=== PATIENT | female | born 1950 | race Caucasian/White ===

== ENCOUNTER 2024-11-18 18:06 | Emergency (ER) | payer MEDICARE, SELFPAY ==
--- NOTE | ~2024-11-18 | XR_ITS ---
CHEST RADIOGRAPH, PA AND LATERAL CLINICAL HISTORY: Chest Pain . COMPARISON: None available TECHNIQUE: PA and lateral views of the chest. FINDINGS Prominent hiatal hernia is identified. The remainder of the cardiomediastinal silhouette is otherwise unremarkable. The lungs are clear. IMPRESSION: Prominent hiatal hernia, without focal infiltrate or effusion. Reviewed, dictated and finalized at location A. NICAL OPERATIONS VICE PRESIDENT
--- NOTE | 2024-11-18 18:09 | ECG_ITS ---
Test Date: 2024-11-18 18:15:17 Measurements Intervals [place] Rate: 75 P: 43 PA: 171 QRS: 0 QRSD: 95 T: 59 QT: 378 QTc: 425 Interpretive Statements SINUS RHYTHM DELAYED PRECORDIAL R/S TRANSITION LOW QRS VOLTAGE IN PRECORDIAL LEADS BASELINE ARTIFACT- I, II, III, AVR, AVL, AVF, V1-V2 BORDERLINE ECG No previous ECG available for comparison Electronically Signed On 11-18-2024 19:07:21 HULL OUTFIT SUPERVISOR by Andi Rapp D.O.
--- OUTSIDE RECORDS SUMMARY | 2024-11-18 18:09 | XMS_ITS | Data Portability ---
Author Organization [facility], Main Office Address [address] [place] [address] Assessment Encounter Date Assessment Date Assessment LastModified by Organization Details LastModified Time 09/14/2024 09/14/2024 Patient is a 73 yo female presenting via TM for sinus pressure. I performed this visit using real time two way telehealth tools, including Valchemy[employer]ity video visits between my location and the patient's home. Prior to initiating the services, I obtained the patient's informed verbal consent to perform this visit using the telehealth tools and answered all the patient's questions. [email or web address] Not available 09/14/2024 19:06:35 Plan of Treatment Reminders Order Date Submit Date Provider Last Modified By Organization Details Last Modified Time Details Appointments None recorded. Lab None recorded. Referral None recorded. Procedures None recorded. Surgeries None recorded. Imaging None recorded. Medication Orders amoxicillin 875 mg-potassiu m clavulanate 125 mg tablet 2023 024 [facility]/Pharmacy #[id number], [address], [place], [address], 19:05:05 fluticasone propionate 50 mcg/actuati on nasal spray,suspe nsion 2023 024 [facility]/Pharmacy #[id number], [address] , [place], [address], 19:05:05 Patient TargetsNo targets recorded. Patient InstructionsNo instructions recorded. Reason for Referral None Reported. Medical Equipment None Reported. Medications Name Sig Start Date Stop Date Status Note LastModified by Organization Details LastModified Time amoxicillin 500 mg capsule TAKE 1 CAPSULE BY MOUTH 3 TIMES A DAY FOR 10 DAYS active Not Available Not Available Not Available carvedilol 12.5 mg tablet TAKE 1 TABLET BY MOUTH TWICE A DAY WITH FOOD active Not Available Not Available No t Available atorvastatin 10 mg tablet TAKE 1 TABLET BY MOUTH EVERY DAY active Not Available Not Available No t Available alendronate 70 mg tablet PLEASE SEE ATTACHED FOR DETAILED DIRECTIONS active Not Available Not Available N ot Available amlodipine 5 mg tablet TAKE 1 TABLET BY MOUTH EVERY DAY active Not Available Not Available No t Available zolpidem 10 mg tablet TAKE 1/2 TABLET BY MOUTH NIGHTLY NEEDED FOR SLEEP. active Not Available Not Available No t Available fluticasone propionate 50 mcg/actuatio n nasal spray,suspen matthew [place] 1 spray every day by intranasal route as directed for 30 days. active Not Available Not Available No t Available amoxicillin 875 mg-potassium clavulanate 125 mg tablet Take 1 tablet every 12 hours by oral route as directed for 10 days. active Not Available Not Available No t Available olmesartan 40 mg tablet TAKE 1 TABLET BY MOUTH EVERY DAY active Not Available Not Available No t Available cyclosporine 0.05 % eye drops in a dropperette INSTILL 1 DROP INTO BOTH EYES TWICE A DAY active Not Available Not Available Not Available Vitals None Recorded Social History None recorded. Functional Status None recorded. Mental Status None recorded. Family History Nothing Reported. Medical History No medical history recorded. Gynecological HistoryNo gynecological history recorded. Obstetrics History GPAL:G 0 P 0 0 0 0 Past Encounters Encounter ID Performer Location Encounter Start Date Encounter Closed Date Diagnosis/Indication Diagnosis SNOMED-CT Code Diagnosis ICD10 Code Diagnosis Note [id number] [facility] Main Office [address] [place] [address] 09/14/2024 19:01:36 09/14/2024 19:06:55 Acute sinusitis 81336211 J01.90 - 20+ days of nasal congestion and thick nasal discharge with cough and sneezing- PE limited, patient well appearing- Given duration of symptoms will treat for bacterial sinusitis- Start Augmentin BID x10 days- Start flonase- Recommende d sudafed PRN for head congestion - Increase PO fluid intake- ER precaution s discussed with the patient- Return to clinic as needed or in 5 days if no improvemen t of symptoms Health Concerns Section Related Observation LastModified by Organization [facility] LastModified Time None Recorded Concern Status LastModified by Organization Details LastModified Time None Recorded Advance Directives Directive None Recorded Payers Encounter Date Sequence Insurance Name Policy Number Policy Chaudhry Covered Member ID Chaudhry Member ID Guarantor Name 09/14/2024 1 [employer] (MEDICARE REPLACEMENT PPO) [id number] 1 Jennie Weber [id number] Jennie Weber Notes Date Note Type Note Provider Name and Address Organization Details Recorded Time 09/14/2024 text/html Patient is a 73 yo female presenting via TM for sinus pressure. Patient reports approximately 3 weeks ago she started to develop sinus pressure, drainage. Has been having symptoms pretty consistent for the past 3 weeks. Has been taking mucinex to help. Denies any other complaints or symptoms. Allergies: None [facility] [address] [facility], [place], [address], [place] [facility] 09/14/2024 19:06:42 OBGyn Episode No OBEpisode recorded.
--- OUTSIDE RECORDS SUMMARY | 2024-11-18 18:10 | XMS_ITS | Encounter Summary ---
Author Organization [facility] Address [address] [place] [address] Phone Care Team Providers Care Business Intelligence Manager Name Role Phone Prashant Ty MD Primary Care Provider [phone] Huy Stark MD PhD Unavailable + Shakila Meléndez MD Unavailable [phone] Velma Alberts Unavailable Unavailable Angelique Foster MD Unavailable Frannie Marroquin MD Unavailable [phone] Maria R Vee MD Unavailable [phone] Cecilia Chavez MD Unavailable [phone] Encounter Details Date Type Department Care Team (Late st Contact Info) Description 10/24/2017 Orders Only [facility] ProviderJanina MD [address] [place] [address] Social History Tobacco Use Types Packs/Day Years Used Date Smoking Tobacco: Never Comments Unknown Sex and Gender Information Value Date Recorded Sex Assigned at Not on file 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 Gender Identity Not on file Sexual Orientation Not on file documented as of this encounter Plan of Treatment Scheduled Procedures Name Priority Associated Diagnoses Date/Ti me COLONOSCOPY Rectal bleeding documented as of this encounter Procedures Procedure Name Priority Date/Time Associated Diagnosis Comments DISCHARGE LABORATORY CUMULATIVE REPORT 10/24/2017 12:00 AM GLOBAL MARKETING OPERATIONS MANAGER documented in this encounter Results * DISCHARGE LABORATORY CUMULATIVE REPORT (10/24/2017 12:00 AM GLOBAL MARKETING OPERATIONS MANAGER) Narrative 10/24/2017 12:00 AM GLOBAL MARKETING OPERATIONS MANAGER Ordered by an unspecified provider. us Historical Provider LAB BLOOD ORDERABLES Kitty l Result documented in this encounter Visit Diagnoses Not on filedocumented in this encounter Additional Health Concerns Infection Onset Date Last Indicated Resolved Time COVID: Suspected 06/14/2023 06/14/2023 06/14/2023 12:48 PM CDT documented as of this encounter Care Teams Business Intelligence Manager Relationship Specialty Start Date End Date Prashant Ty MD [address] [place], [place] [address]RONI REEDER [address] [place] [id number] PCP - General 05/19/17 Huy Stark MD PhD [address] [place], [place] [address]RONI REEDER [address] [place] [id number] Surgeon Ophthalmology 08/07/18 Shakila Meléndez MD [address] [place], [place] [address]RONI REEDER [address] [place] [id number] Medical Oncologist/Hematologis t Medical Oncology 08/07/18 Velma Alberts [address] [place], [place] [address]RONI REEDER [address] [place] [id number] Referring Physician Dermatology 08/07/18 08/08/19 Angelique Foster MD [address] [place], [place] [address]RONI REEDER [address] [place] [address] Referring Physician Obstetrics and Gynecology 08/08/18 08/12/21 Frannie Marroquin MD [address] [place] [address] Consulting Physician Dermatology 08/09/19 Maria R Vee MD [address] [facility] [phone] [place] [address] Electrical Mechanic Obstetrics and Gynecology 08/13/21 Cecilia Chavez MD [address] [place] [id number] Consulting Physician Bariatrics 08/01/24 documented as of this encounter
--- OUTSIDE RECORDS SUMMARY | 2024-11-18 18:10 | XMS_ITS | Referral Summary ---
Author Organization [facility] Address [address] [place] [address] Care Team Providers Care Baker Operator Automatic Name Role Phone Prashant Ty MD Primary Care Provider [phone] Huy Stark MD PhD Unavailable + Shakila Meléndez MD Unavailable Frannie Marroquin MD Unavailable Maria R Vee MD Unavailable Cecilia Chavez MD Unavailable [phone] Encounters Date Type Department Care Team Description 10/24/2024 9:35 AM SECONDARY HISTORY TEACHER - 10/24/2024 11:59 PM SECONDARY HISTORY TEACHER Hospital Encounter [facility] [address] [place] [address] Encounter for screening mammogram for malignant neoplasm of breast Discharge Disposition: Discharge to home or self care 10/16/2024 Orders Only [facility] [address] [place] [phone] Tracy Unger, RN 10/11/2024 10:30 AM SECONDARY HISTORY TEACHER Office Visit [facility] [address] 6th Floor, [address] [facility] [place] [place] [address] Nano Juárez, OD Macular degeneration of both eyes, unspecified type (Primary Dx); Status post LASIK surgery of both eyes; Both eyes affected by degenerative myopia with other maculopathy; Degenerative myopia of right eye, unspecified whether complication present; Dry eye syndrome of both eyes 10/11/2024 10:20 AM SECONDARY HISTORY TEACHER Imaging Exam [facility] [address] [facility] [address] [place] [address] 09/28/2024 6:00 PM SECONDARY HISTORY TEACHER Office Visit [facility] at [address] [phone] Miguelina Cardona NP Right acute serous otitis media, recurrence not specified (Primary Dx) 09/21/2024 9:00 AM SECONDARY HISTORY TEACHER Infusion [facility] [address] [place] [phone] Iron deficiency anemia, unspecified iron deficiency anemia type (Primary Dx) 09/13/2024 9:00 AM SECONDARY HISTORY TEACHER Infusion [facility] [address] [place] [phone] Iron deficiency anemia, unspecified iron deficiency anemia type (Primary Dx); Fatigue, unspecified type 09/07/2024 9:00 AM SECONDARY HISTORY TEACHER Infusion [facility] [address] [place] [phone] Iron deficiency anemia, unspecified iron deficiency anemia type (Primary Dx) 08/29/2024 11:00 AM SECONDARY HISTORY TEACHER Office Visit [facility] [address] 6 [place] [address] Shakila Meléndez MD History of B-cell lymphoma (Primary Dx) 08/29/2024 10:00 AM SECONDARY HISTORY TEACHER Lab [facility] [address] [facility] [address] [place] [address] History of B-cell lymphoma 08/27/2024 10:00 AM SECONDARY HISTORY TEACHER Office Visit [address] [place] [phone] Prashant Ty MD Medicare annual wellness visit, subsequent (Primary Dx); Primary hypertension; Pure hypercholesterolemia; History of B-cell lymphoma; Osteopenia, unspecified location; Encounter for screening mammogram for malignant neoplasm of breast; Diabetes mellitus screening; Iron deficiency anemia, unspecified iron deficiency anemia type; History of adenomatous polyp of colon; Hay fever; Degeneration of intervertebral disc of lumbar region with discogenic back pain; DDD (degenerative disc disease), thoracic from Last 3 Months Allergies Active Allergy Reactions Criticality Noted Date Comments Prochlorperazine Edisylate Unknown 0 Medications aspirin 81 mg tablet daily. 07/29/20 14 Active famotidine (PEPCID) 40 mg tablet Take 1 tablet (40 mg total) by mouth as needed Active valACYclovir (VALTREX) 1 gram tabletIndications: HSV-1 (herpes simplex virus 1) infection Take 2 tabs (2000 mg) 2 times a days for 1 day. 4 tablet 1 08/02/20 19 Active olmesartan (BENICAR) 40 mg tabletIndications: Primary hypertension Take 1 tablet (40 mg total) by mouth daily 90 tablet 3 10/07/19 24 Active atorvastatin (LIPITOR) 10 mg tabletIndications: Hyperlipidemia, unspecified hyperlipidemia type TAKE 1 TABLET BY MOUTH EVERY DAY 90 tablet 07/20/20 24 Active TESTOSTERONE TRANSDERM Apply 1 Application topically daily 0 07/04/20 24 Active SEMAGLUTIDE, WEIGHT LOSS, SUBQ Inject 0.375 mg under the skin once a week Active carvediloL (COREG) 12.5 mg tabletIndications: Primary hypertension TAKE 1 TABLET BY MOUTH TWICE A DAY WITH FOOD 180 tablet 2 08/30/20 24 Active zolpidem (AMBIEN) 10 mg tabletIndications: Insomnia, unspecified type Take 0.5 tablets (5 mg total) by mouth nightly as needed for sleep 15 tablet 10/17/19 25 Active amLODIPine (NORVASC) 5 mg tabletIndications: Primary hypertension Take 1 tablet (5 mg total) by mouth daily 90 tablet 1 11/06/19 25 Active amLODIPine (NORVASC) 5 mg tabletIndications: Primary hypertension TAKE 1 TABLET BY MOUTH EVERY DAY 90 tablet 07/16/20 24 025 Discontin ued(Reord er) Active Problems Problem Noted Date Diagnosed Date DDD (degenerative disc disease), thoracic 2023 Assessment & Plan (08/27/2024 10:04 AM SECONDARY HISTORY TEACHER): She hs fluctuating pain in both uppper and lower back with known DDD in both locations. Benign exam. Advised OTC analgesics PRN. Refer to PT. Dry eye syndrome of both eyes 04/12/2024 Assessment & Plan (10/11/2024 3:23 PM SECONDARY HISTORY TEACHER): Pfats TID+ Assessment & Plan (04/12/2024 11:17 AM CDT): Discontinue Restasis Rec pfats TID+ OU Lumbar degenerative disc disease 08/23/2023 Assessment & Plan (08/27/2024 10:04 AM SECONDARY HISTORY TEACHER): She hs fluctuating pain in both uppper and lower back with known DDD in both locations. Benign exam. Advised OTC analgesics PRN. Refer to PT Assessment & Plan (08/23/2023 10:08 AM SECONDARY HISTORY TEACHER): Chronic. Intermittent. Benign exam. Check Xrays. Continue OTC analgesics PRN. Advised HEP. Iron deficiency anemia 01/05/2023 Assessment & Plan (08/27/2024 9:57 AM SECONDARY HISTORY TEACHER): Recently recurrent. She begins a series of 3 injectafer infusions next week. Assessment & Plan (08/01/2024 11:39 AM SECONDARY HISTORY TEACHER): Resolved when last checked. Previously, she has not responded to oral iron. She received a series of 3 venofer infusions in 02/2024.If iron deficiency is again confirmed, this is likely causing current symptoms and she will need iron infusions again. Assessment & Plan (02/06/2024 9:49 AM CDT): Recurrent as of outside labs 12/22/23. Recheck labs. Previously, she has not responded to oral iron. If iron deficiency is again confirmed, this is likely causing current symptoms and she will need iron infusions again. Assessment & Plan (08/23/2023 10:14 AM SECONDARY HISTORY TEACHER): Resolved when last checked. Now with mild recurrent anemia. Recheck labs. She is scheduled to see Dr. Meléndez in early 08/2023. 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 Start Restasis BID OU - discussed proper instillation/dosage/side effects. Discussed relationship to JOHNY - pt will discuss with her PCP. Pt to return to clinic if symptoms worsen or do not improve. RTC for ant seg check with Gum or Marquita in 3 months. HSV-1 (herpes simplex virus 1) infection 020 Myopic degeneration, right eye 01/09/2019 Assessment & Plan (05/31/2023 11:09 AM CDT): Central atrophy Assessment & Plan (10/25/2022 2:20 PM SECONDARY HISTORY TEACHER): BCVA 20/90, variable looking through past viists. Stable retinal thinning and superior small schisis cavity. No subjective changes. No choroidal neovascular membrane (CNVM) on OCT. Copying Dr. Stark. Assessment & Plan (10/13/2021 9:26 AM SECONDARY HISTORY TEACHER): Status post PDT in 2003 OD. OCT is stable with subretinal fibrosis > superior and generalized thinning. No active CNVM. Recommend continuing Amsler daily and PreserVision vitamins. Call immediately with any changes to Amsler grid. Assessment & Plan (01/20/2021 10:34 AM CDT): She has extensive retinal thinning and myopic macular degeneration with a history of choroidal neovascularization for which she underwent photodynamic therapy in 2003. In OS, there is also peripapillary atrophy with some macular myopic changes but there is significantly milder than the right Assessment & Plan (01/09/2019 9:50 AM CDT): Status post PDT right eye for subretinal bleed 2003 No active choroidal neovascularization today Continue observation Degenerative myopia of both eyes 01/09/2019 Assessment & Plan (10/11/2024 3:24 PM SECONDARY HISTORY TEACHER): RTC with any acute vision changes Assessment & Plan (04/12/2024 11:16 AM CDT): Cont with current Rx RTC immediately with any acute vision changes, fl/floaters Assessment & Plan (10/13/2023 10:38 AM SECONDARY HISTORY TEACHER): No e/o choroidal neovascular membrane (CNVM). RTC with any acute vision changes. Release updated glasses Rx Assessment & Plan (05/31/2023 11:10 AM CDT): No evidence of CNV Assessment & Plan (05/25/2022 11:52 AM CDT): OD > OS No e/o CNV OU Assessment & Plan (03/05/2022 12:52 PM CDT): Already scheduled for followup with Dr. Stark next month. Assessment & Plan (01/09/2019 9:54 AM CDT): Continue observation Counseled regarding s/s of CNV or RD History of B-cell lymphoma 05/11/2016 Assessment & Plan (08/27/2024 9:55 AM SECONDARY HISTORY TEACHER): RAFA. [facility] exam. [facility] Assessment & Plan (08/23/2023 10:15 AM SECONDARY HISTORY TEACHER): RAFA. Benign exam. She is scheduled to see Dr. Meléndez next month Assessment & Plan (08/16/2022 1:47 PM SECONDARY HISTORY TEACHER): RAFA. Benign exam. Released from Oncology follow up. 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 Prior followed by Dr. Meléndez- CBC at upcoming OV for surveillance Assessment & Plan (08/13/2021 10:02 AM SECONDARY HISTORY TEACHER): RAFA. She remains in remission. Followed by Dr. Meléndez Assessment & Plan (08/12/2020 10:05 AM SECONDARY HISTORY TEACHER): RAFA. She remains in remission. Followed by Dr. Meléndez Assessment & Plan (08/09/2019 10:04 AM SECONDARY HISTORY TEACHER): RAFA. Followed by Dr. Meléndez Assessment & Plan (08/08/2018 10:06 AM SECONDARY HISTORY TEACHER): She remains in remission. Followed by Dr. Meléndez. Osteoarthritis of right shoulder 07/30/2015 Insomnia 02/20/2013 Assessment & Plan (08/23/2023 10:10 AM SECONDARY HISTORY TEACHER): Intermittent. She takes the Ambien 5 mg about twice weekly. No evidence of abuse. Assessment & Plan (08/16/2022 1:33 PM SECONDARY HISTORY TEACHER): Intermittent. She takes the Ambien 5 mg about twice weekly. Assessment & Plan (03/31/2022 9:27 AM CDT): Intermittent. She takes the Ambien 5 mg 2-3x/week Referral to sleep medicine to discuss concerns of uncontrolled HTN, poss JOHNY & insomnia eval Assessment & Plan (12/30/2021 9:41 AM CDT): Intermittent. She takes the Ambien 5 mgg about twice weekly. Assessment & Plan (08/12/2020 10:04 AM SECONDARY HISTORY TEACHER): Intermittent. Improving. She now only takes Ambien when travelling and sleeping in a hotel. Assessment & Plan (08/09/2019 10:04 AM SECONDARY HISTORY TEACHER): Infrequent. She only take Zolpidem when she travels. Assessment & Plan (08/08/2018 10:07 AM SECONDARY HISTORY TEACHER): Infrequent. She rarely uses zolpidem. Osteopenia 11/19/2011 Overview (09/22/2023): Her FRAX adjusted for TBS is 3.6% at hip 08/2023 Assessment & Plan (08/27/2024 10:03 AM SECONDARY HISTORY TEACHER): Followed by [facility]. Assessment & Plan (09/22/2023 2:07 PM SECONDARY HISTORY TEACHER): We will start ALN and plan a 5-year course of Rx Exercise and balance While the focus of the visit has been on bone strength-promoting treatments, we reviewed how balance (proprioception) serves as our s ixth sense. Improving balance plus strength-building exercises are, in my opinion, as important as medications to reduce the risk of fracture. I discussed and provided some straightforward and safe one-foot balance promotion exercises and demonstrated how to do these. Calcium and D After the essential part of today's visit, I again reviewed the patient's total calcium intake. We discussed that optimum calcium intake for bone health is critical. The total amount to achieve via diet (preferred) and supplements is 1000-1200mg daily, not more than this. We discussed different foods and accessories to make that goal realized. I referenced the handout in our brochure. I discussed how to maintain adequate Vitamin D levels best, and that is via supplementation, especially from until . Assessment & Plan (08/23/2023 10:06 AM SECONDARY HISTORY TEACHER): Up to date on DEXA. Counseled on regular exercise. She is scheduled to see [facility] next month. Assessment & Plan (08/13/2021 9:44 AM SECONDARY HISTORY TEACHER): Up to date on DEXA Hay fever 03/18/2011 Assessment & Plan (08/27/2024 10:01 AM SECONDARY HISTORY TEACHER): Her PND is likely due to this. I recommend OTC medication, including antihistamines, flonase, mucinex PRN. Hyperlipidemia 03/18/2011 Assessment & Plan (08/27/2024 9:53 AM SECONDARY HISTORY TEACHER): I discussed ASCVD risk. I spent 15 minutes counseling on CV risk reduction. Our discussion included the followin. Healthy eating habits, including low carbohydrate diet, low starch vegetables. 2. Regular aerobic exercise plan, which can include walking, jogging, treadmill, rowing, swimming biking. I recommend targeting the equivalent of 10K steps daily most days of the week. 3. Optimize BP control. Continue current regimen. Assessment & Plan (08/23/2023 10:01 AM SECONDARY HISTORY TEACHER): I discussed ASCVD risk. I spent 15 minutes counseling on CV risk reduction. Our discussion included the followin. Healthy eating habits, including low carbohydrate diet, low starch vegetables. 2. Regular aerobic exercise plan, which can include walking, jogging, treadmill, rowing, swimming biking. I recommend targeting the equivalent of 10K steps daily most days of the week. 3. Optimize BP control. Continue current regimen. Assessment & Plan (08/16/2022 1:30 PM SECONDARY HISTORY TEACHER): I discussed ASCVD risk. I spent 15 minutes counseling on CV risk reduction. Our discussion included the followin. Healthy eating habits, including low carbohydrate diet, low starch vegetables. 2. Regular aerobic exercise plan, which can include walking, jogging, treadmill, rowing, swimming biking. I recommend targeting the equivalent of 10K steps daily most days of the week. 3. Optimize BP control. Continue current regimen. Assessment & Plan (03/31/2022 9:31 AM CDT): I spent 15 minutes counseling her on CV risk reduction. Our discussion included the followin. Healthy eating habits, including low carbohydrate diet, low starch vegetables. We discussed intermittent fasting and paleo diets. 2. Regular aerobic exercise plan, which can include walking, jogging, treadmill, rowing, swimming biking. I recommend targeting the equivalent of 20K steps daily most days of the week. 3. Optimize BP control. Continue current regimen. Assessment & Plan (08/13/2021 9:45 AM SECONDARY HISTORY TEACHER): I spent 15 minutes counseling her on CV risk reduction. Our discussion included the followin. Healthy eating habits, including low carbohydrate diet, low starch vegetables. We discussed intermittent fasting and paleo diets. 2. Regular aerobic exercise plan, which can include walking, jogging, treadmill, rowing, swimming biking. I recommend targeting the equivalent of 20K steps daily most days of the week. 3. Optimize BP control. Continue current regimen. Assessment & Plan (08/12/2020 10:04 AM SECONDARY HISTORY TEACHER): I spent 15 minutes counseling her on CV risk reduction. Our discussion included the followin. Healthy eating habits, including low carbohydrate diet, low starch vegetables. We discussed intermittent fasting and paleo diets. 2. Regular aerobic exercise plan, which can include walking, jogging, treadmill, rowing, swimming biking. I recommend targeting the equivalent of 20K steps daily most days of the week. 3. Optimize BP control. Continue current regimen. Assessment & Plan (08/09/2019 10:03 AM SECONDARY HISTORY TEACHER): I spent 15 minutes counseling her on CV risk reduction. Our discussion included the followin. Healthy eating habits, including low carbohydrate diet, low starch vegetables. We discussed intermittent fasting and paleo diets. 2. Regular aerobic exercise plan, which can include walking, jogging, treadmill, rowing, swimming biking. I recommend targeting the equivalent of 20K steps daily most days of the week. 3. Optimize BP control. 4. Assessment of ASCVD risk and recommendations how to mitigate this risk.discussion was consistent with the 5 A s approach. Continue current regimen Assessment & Plan (08/08/2018 10:07 AM SECONDARY HISTORY TEACHER): I spent 15 minutes counseling her on CV risk reduction. Our discussion included the followin. Healthy eating habits, including low carbohydrate diet, low starch vegetables. We discussed intermittent fasting and paleo diets. 2. Regular aerobic exercise plan, which can include walking, jogging, treadmill, rowing, swimming biking. I recommend targeting the equivalent of 20K steps daily most days of the week. 3. Optimize BP control. 4. Taking aspirin. 5. Assessment of ASCVD risk and recommendations how to mitigate this risk.discussion was consistent with the 5 A s approach. Continue current regimen. Hypertension 03/18/2011 Assessment & Plan (08/27/2024 9:53 AM SECONDARY HISTORY TEACHER): Hypertension is stable Continue current treatment regimen. Regular aerobic exercise. Continue current medications. Blood pressure will be reassessed at the next regular appointment. Assessment & Plan (02/06/2024 9:48 AM CDT): Hypertension is stable Continue current treatment regimen. Regular aerobic exercise. Continue current medications. Blood pressure will be reassessed at the next regular appointment. Assessment & Plan (08/23/2023 10:10 AM SECONDARY HISTORY TEACHER): Hypertension is controlled on home monitoring, although mildly high here today. Continue current treatment regimen. Regular aerobic exercise. Continue current medications. Ambulatory blood pressure monitoring. Blood pressure will be reassessed at the next regular appointment. Assessment & Plan (11/02/2022 12:22 PM SECONDARY HISTORY TEACHER): Hypertension is improving with treatment Continue current treatment regimen. Regular aerobic exercise. Continue current medications. Blood pressure will be reassessed at the next regular appointment. Assessment & Plan (08/16/2022 1:41 PM SECONDARY HISTORY TEACHER): Hypertension is uncontrolled. Continue current treatment regimen. Dietary sodium restriction. Regular aerobic exercise. Medication changes per orders. Ambulatory blood pressure monitoring. Blood pressure will be reassessed in 3 months. Add amlodipine 5 mg QD Assessment & Plan (07/01/2022 2:38 PM CDT): Uncontrolled. Discussed options. Replace diltiazem with carvedilol. Continue current dose olmesartan. Recheck at next scheduled visit. Assessment & Plan (03/31/2022 9:28 AM CDT): Hypertension is worsening Dietary sodium restriction. Weight loss. Regular aerobic exercise. Medication changes per orders. Ambulatory blood pressure monitoring. Blood pressure will be reassessed in 3 months. Increase dilt 240mg every day; SER Referral to sleep medicine for JOHNY eval Anticipatory CMP at OV in 3 months Assessment & Plan (12/30/2021 9:44 AM CDT): Hypertension is uncontrolled. Regular aerobic exercise. Medication changes per orders. Ambulatory blood pressure monitoring. Blood pressure will be reassessed in 3 months. Increase dose olmesartan Assessment & Plan (11/17/2021 9:45 AM SECONDARY HISTORY TEACHER): HTN improving on home montoring, but still high here. I suspect reactive HTN. We discussed options. Continue current reigmen and home monitoring. Recheck in about 8 weeks; she will bring her cuff to compare. Assessment & Plan (08/13/2021 10:09 AM SECONDARY HISTORY TEACHER): Hypertension is worsening Dietary sodium restriction. Regular aerobic exercise. Medication changes per orders. Blood pressure will be reassessed in 3 months. Add ARB. Assessment & Plan (10/09/2020 11:02 AM SECONDARY HISTORY TEACHER): Hypertension is stable Continue current treatment regimen. Regular aerobic exercise. Continue current medications. Blood pressure will be reassessed at the next regular appointment. Assessment & Plan (08/12/2020 10:04 AM SECONDARY HISTORY TEACHER): Hypertension is stable Continue current treatment regimen. Regular aerobic exercise. Continue current medications. Ambulatory blood pressure monitoring. Blood pressure will be reassessed at the next regular appointment. Assessment & Plan (08/09/2019 10:03 AM SECONDARY HISTORY TEACHER): Hypertension is controlled Continue current treatment regimen. Regular aerobic exercise. Continue current medications. Blood pressure will be reassessed at the next regular appointment. Assessment & Plan (08/08/2018 10:07 AM SECONDARY HISTORY TEACHER): Hypertension is controlled.. Continue current treatment regimen. Regular aerobic exercise. Continue current medications. Ambulatory blood pressure monitoring. Blood pressure will be reassessed at the next regular appointment. Macular degeneration 03/18/2011 Combined forms of age-related cataract of both e yes Overview (01/20/2021): Age-related nuclear cataract, bilateral - (Added by TW Conv) Assessment & Plan (10/11/2024 3:24 PM SECONDARY HISTORY TEACHER): Not yet v/s left eye (OS) - monitor/defer cataract extraction (CE) until s/sx indicate Assessment & Plan (04/12/2024 11:15 AM CDT): Best-corrected visual acuity (BVA) stable, monitor Assessment & Plan (10/13/2023 10:38 AM SECONDARY HISTORY TEACHER): Tr central posterior subcapsular cataract (PSC) both eyes (OU), visually functioning adequately, monitor Assessment & Plan (05/31/2023 11:11 AM CDT): Discussed cataract and continued follow up with Dr Juárez Assessment & Plan (10/13/2021 9:26 AM SECONDARY HISTORY TEACHER): Defer cataract surgery until signs and symptoms indicate Resolved Problems Problem Noted Date Diagnosed Date Resolved Date Vitreous syneresis of both eyes 01/09/2019 08/08/2020 Thoracic radiculitis 12/14/2016 018 Supraventricular tachycardia 03/18/2015 08/08/2018 Immunizations Immunization Administration Dates Next Due Influenza, Quadrivalent, Hig h Dose, Preservative Free, Intrr 07/19/2023,07/10/2021,06/20/2020 Influenza, Quadrivalent, Rec ombinant, Egg Free, Preservative Free, Intramuscular 07/01/2022 Influenza, Quadrivalent, Spl it, Preservative Free, Intramuscular 08/04/2016,07/30/2015 Influenza, Trivalent, High D ose, Split, Preservative Free, Intramuscular 08/17/2024,06/25/2019,07/11/2018,07/27 Influenza, Trivalent, Preser vative Free, Intramuscular 06/23/2014,04/21/2014,07/27/2013,08/26 Influenza, Trivalent, Split, Preservative Free, Intradermal 06/19/2012 Pfizer SARS-CoV-2 Monovalent Vaccination (12+ Yrs) PURPLE 06/25/2021,11/22/2020,10/30/2020 [employer] Sars-Cov-2 Bivalent V accination (12+ YRS) 07/04/2022 Pneumococcal Conjugate PCV 13 08/04/2016 Pneumococcal Polysaccharide PPV23 07/30/2015 RSV Vaccine, Pref, Recombina nt, Subunit, Adjuvanted, PF, IM (Arexvy) 08/17/2024 Sars-cov-2 Covid-19 Mrna, Bi valent, Original/omicron Ba.1 07/19/2023 Tdap 11/22/2022,03/18/2011 ZOSTER LIVE 05/27/2013 ZOSTER Recombinant 08/09/2022,04/20/2022, 020 Social History Tobacco Use Types Packs/Day Years Used Date Smoking Tobacco: Never Cigarettes Smokeless Tobacco: Never Tobacco Cessation:Counseling Given: Not Answered Alcohol Use Standard Drinks/Week Comments Not Currently 0 (1 standard drink = 0.6 oz pur e alcohol) social AUDIT-C Answer Date Recorded Q1: How often do you have a drink containing alcohol? Never 08/27/2024 Q2: How many drinks containi ng alcohol do you have on a typical day when you are drinking? Patient does not drink Q3: How often do you have si x or more drinks on one occasion? Never 08/27/2024 PHQ-2 Answer Date Recorded PHQ-2 Total Score (If total score is 3 or more points, staff should administer the PHQ-9) 0 08/26/2024 Exercise Vital Sign Answer Date Recorde d On average, how many days pe r week do you engage in moderate to strenuous exercise (like a brisk walk)? 4 days 06/30/2020 On average, how many minutes do you engage in exercise at this level? 30 min 06/30/2020 Hunger Vital Sign Answer Date Recorded Within the past 12 months, y ou worried that your food would run out before you got the money to buy more. Never true 09/21/20 24 Within the past 12 months, t he food you bought just didn't last and you didn't have money to get more. Never true 09/21/2024 Personal Safety Answer Date Recorded Have you ever been in or are you currently in a harmful physical or emotional relationship or is someone making you feel afraid or unsafe? Denies 09/21/2024 Comments No Sex and Gender Information Value Date Recorded Sex Assigned at Not on file Legal Sex Female 3:42 AM SECONDARY HISTORY TEACHER Gender Identity Not on file Sexual Orientation Not on file Last Filed Vital Signs Vital Sign Reading Time Taken Comments Blood Pressure 139/83 09/28/2024 6:00 PM SECONDARY HISTORY TEACHER Pulse 81 09/28/2024 6:00 PM SECONDARY HISTORY TEACHER Temperature 36.7 C (98 F) 09/28/2024 6:00 PM SECONDARY HISTORY TEACHER Respiratory Rate 20 09/28/2024 6:00 PM SECONDARY HISTORY TEACHER Oxygen Saturation 98% 09/28/2024 6:00 PM SECONDARY HISTORY TEACHER Inhaled Oxygen Concentration - - Weight 61.2 kg (135 lb) 09/28/2024 6:00 PM SECONDARY HISTORY TEACHER Height 162.6 cm (5' 4 ) 09/28/2024 6:00 PM SECONDARY HISTORY TEACHER Body Mass Index 23.17 09/28/2024 6:00 PM SECONDARY HISTORY TEACHER Plan of Treatment Scheduled Procedures Name Priority Associated Diagnoses Date/Ti me COLONOSCOPY Rectal bleeding Procedures Procedure Name Priority Date/Time Associated Diagnosis Comments SCREENING MAMMOGRAM BILATERAL W YOGESH Schedule Routine, Read Routine (OP Routine) 10/24/2024 9:49 AM SECONDARY HISTORY TEACHER Encounter for screening mammogram for malignant neoplasm of breast OCT, RETINA - OU - BOTH EYES Routine 10/11/2024 10:19 AM SECONDARY HISTORY TEACHER Macular degeneration of both eyes, unspecified type EGFR Routine 08/29/2024 10:13 AM SECONDARY HISTORY TEACHER History of B-cell lymphoma DIFFERENTIAL AUTO Routine 08/29/2024 10: 13 AM SECONDARY HISTORY TEACHER History of B-cell lymphoma CBC WITH AUTO DIFFERENTIAL Routine 08/29/2024 10:13 AM SECONDARY HISTORY TEACHER History of B-cell lymphoma COMPREHENSIVE METABOLIC PANEL Routine 08/29/2024 10:13 AM SECONDARY HISTORY TEACHER History of B-cell lymphoma LACTATE DEHYDROGENASE Routine 08/29/2024 10:13 AM SECONDARY HISTORY TEACHER History of B-cell lymphoma DEXA TBS AXIAL SKELETON BONE DENSITY 1 OR MORE SITES Schedule Routine, Read Routine (OP Routine) 09/22/2023 11:16 AM SECONDARY HISTORY TEACHER Osteoporosis, unspecified osteoporosis type, unspecified pathological fracture presence STOOL DNA COLOGUARD Routine 09/27/2022 9:00 PM SECONDARY HISTORY TEACHER Colon cancer screening COLONOSCOPY 03/11/2022 8:49 AM CDT HEPATITIS C ANTIBODY Routine 03/27/2019 9:57 AM CDT Need for hepatitis C screening test from Last 3 Months or Most Recently Relevant to Health Maintenance Results * Screening Mammogram Bilateral W Yogesh (10/24/2024 9:49 AM SECONDARY HISTORY TEACHER) Anatomical Region Laterality Modality Breast Bilateral Mammography Narrative 10/24/2024 2:58 PM SECONDARY HISTORY TEACHER Mammogram Technique: Bilateral Digital Breast Tomosynthesis, Bilateral C-view 2D Screening mammogram. Views obtained: bilateral craniocaudal and bilateral mediolateral oblique. Computer Aided Detection was performed. Mammogram Findings: The present examination has been compared to prior imaging studies performed at [facility] on 10/20/2020, 10/06/2022 and 10/20/2023. There are scattered areas of fibroglandular density. There is no suspicious abnormality in either breast. Impression: There is no mammographic evidence of malignancy. Annual screening mammography is recommended. OVERALL FINAL ASSESSMENT: BI-RADS CATEGORY 1: Negative. Procedure Note Gina Armstrong MD - 10/24/2024 Mammogram Technique: Bilateral Digital Breast Tomosynthesis, Bilateral C-view 2D Screening mammogram. Views obtained: bilateral craniocaudal and bilateral mediolateral oblique. Computer Aided Detection was performed. Mammogram Findings: The present examination has been compared to prior imaging studies performed at [facility] on 10/20/2020, 10/06/2022 and 10/20/2023. There are scattered areas of fibroglandular density. There is no suspicious abnormality in either breast. Impression: There is no mammographic evidence of malignancy. Annual screening mammography is recommended. OVERALL FINAL ASSESSMENT: BI-RADS CATEGORY 1: Negative. Prashant Ty MD IMG MAMMO PROCEDURES Kitty l Result * OCT, Retina - OU - Both Eyes (10/11/2024 10:19 AM SECONDARY HISTORY TEACHER) Central Macular Thickness OS 259 mircometers CONTINUUM Central Macular Thickness OD 249 micrometers CONTINUUM Anatomical Region Laterality Modality Head Other Narrative 10/11/2024 3:24 PM SECONDARY HISTORY TEACHER Right Eye Quality was good. Progression has been stable. Findings include macular pucker. Macular thickness was 249 micrometers. Left Eye Quality was borderline. Progression has been stable. Findings include macular pucker. Macular thickness was 259 mircometers. 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 73 m2 Comment: Interpretive Data Reference Interval Normal >/= 90 mL/min/1.73m2 Mildly decreased* 60 - 89 mL/min/1.73m2 Mildly to moderately decreased 45 - 59 mL/min/1.73m2 Moderately to severely decreased 30 - 44 mL/min/1.73m2 Severely decreased 15 - 29 mL/min/1.73m2 Kidney Failure < 15 mL/min/1.73m2 *Relative to young adult level Estimated glomerular filtration rate is determined by the 2020 CKD-EPI equation recommended by the National Kidney Foundation (A Unifying Approach to GFR Estimation: Recommendations of the NKF-ASK Task Force on Reassessing the Inclusion of Race in Diagnosing Kidney Disease, JASN 2020). The CKD-EPI equation should not be used for patients with unstable renal function and has not been validated in children and those over 70. Current interpretive data was last reviewed 2021. Blood 08/29/2024 10:1 3 AM SECONDARY HISTORY TEACHER 08/29/2024 10:33 AM SECONDARY HISTORY TEACHER Lynnette Figueroa TWISTER HAND LAB BLOOD ORDERABLES Final Result [facility] [place] [address] * Differential, auto (08/29/2024 10:13 AM SECONDARY HISTORY TEACHER) Neutrophil abs 2.4 1.5 - 6.5 K/cumm Comment:Testing performed by : [facility], [address] [place] [phone] Lymphocyte abs 1.2 0.8 - 3.3 K/cumm CERNER BJ Comment:Testing performed by : [facility], [address] [place], [place] [phone] Monocyte abs 0.6 0.2 - 0.8 K/cumm CERNER BJ Comment:Testing performed by : [facility], [address] [place], [place] [phone] Eosinophil abs 0.3 0.0 - 0.5 K/cumm CERNER BJ Comment:Testing performed by : [facility], [address] [place] [phone] Basophil abs 0.1 0.0 - 0.1 K/cumm CERNER BJ Comment:Testing performed by : [facility], [address] [place] [phone] Neutrophil pct 54.0 % CERNER BJ Comment: Interpretive Data Percent cell count reference ranges are not reported, since discordance with absolute values may lead to misinterpretation of CBC data. Current Interpretive Data was last revised on 2018. Testing performed by: [facility], [address] [place] [phone] Lymphocyte pct 26.4 % CERNER BJ Comment: Interpretive Data Percent cell count reference ranges are not reported, since discordance with absolute values may lead to misinterpretation of CBC data. Current Interpretive Data was last revised on 2018. Testing performed by: [facility], [address] [place] [phone] Monocyte pct 12.5 % MIREILLE RAGLAND Comment: Interpretive Data Percent cell count reference ranges are not reported, since discordance with absolute values may lead to misinterpretation of CBC data. Current Interpretive Data was last revised on 2018. Testing performed by: [facility], [address] [place] [phone] Eosinophil pct 5.8 % MIREILLE RAGLAND Comment: Interpretive Data Percent cell count reference ranges are not reported, since discordance with absolute values may lead to misinterpretation of CBC data. Current Interpretive Data was last revised on 2018. Testing performed by: [facility], [address] [place], [place] [phone] Basophil pct 1.3 % MIREILLE RAGLAND Comment: Interpretive Data Percent cell count reference ranges are not reported, since discordance with absolute values may lead to misinterpretation of CBC data. Current Interpretive Data was last revised on 2018. Testing performed by: [facility], [address] [place] [phone] Blood 08/29/2024 10:1 3 AM SECONDARY HISTORY TEACHER 08/29/2024 10:30 AM SECONDARY HISTORY TEACHER us Lynnette Figueroa TWISTER HAND LAB BLOOD ORDERABLES Final Result [facility] [place] [address] * (ABNORMAL) CBC with auto differential (08/29/2024 10:13 AM SECONDARY HISTORY TEACHER) WBC 4.5 3.8 - 9.9 K/cumm Comment:Testing performed by : [facility], [address] [place] [phone] Hgb 10.5(L) 11.9 - 15.5 g/dL MIREILLE BUTT Comment:Testing performed by : [facility], [address] [place] [phone] Hct 33.7(L) 35.6 - 45.5 % CERCALVIN BJ Comment:Testing performed by : [facility], [address] [place], [place] [phone] Plt 330 150 - 400 K/cumm CERCALVIN BJ Comment:Testing performed by : [facility], [address] [place], [place] [phone] MPV 8.0 6.8 - 10.4 fL CERCALVIN BJ Comment:Testing performed by : [facility], [address] [place], [place] [phone] RBC 3.71(L) 3.90 - 5.20 M/cumm CERCALVIN BJ Comment:Testing performed by : [facility], [address] [place], [place] [phone] MCV 90.9 81.3 - 96.4 fL CERCALVIN BJ Comment:Testing performed by : [facility], [address] [place], [place] [phone] MCH 28.2 27.1 - 33.3 pg CERCALVIN BJ Comment:Testing performed by : [facility], [address] [place], [place] [phone] MCHC 31.1(L) 32.3 - 35.7 g/dL CERCALVIN BJ Comment:Testing performed by : [facility], [address] [place], [place] [phone] RDW CV 14.9 11.1 - 14.9 % MIREILLE BJ Comment:Testing performed by : [facility], [address] [place], [place] [phone] NRBC abs 0.00 0.00 - 0.01 K/cumm CERCALVIN BJ Comment:Testing performed by : [facility], [address] [place], [place] [phone] Blood 08/29/2024 10:1 3 AM SECONDARY HISTORY TEACHER 08/29/2024 10:30 AM SECONDARY HISTORY TEACHER us Lynnette Figueroa TWISTER HAND LAB BLOOD ORDERABLES Final Result [facility] [place] [address] * Lactate dehydrogenase (LD) (08/29/2024 10:13 AM SECONDARY HISTORY TEACHER) [facility] Lactate dehydrogenase (LDH) 171 100 - 250 Units/L Blood 08/29/2024 10:1 3 AM SECONDARY HISTORY TEACHER 08/29/2024 10:33 AM SECONDARY HISTORY TEACHER Lynnette Figueroa TWISTER HAND LAB BLOOD ORDERABLES Final Result [facility] [place] [address] * (ABNORMAL) Comprehensive metabolic panel (08/29/2024 10:13 AM SECONDARY HISTORY TEACHER) [facility] Sodium 143 135 - 145 mmol/L Potassium, pl 4.1 3.3 - 4.9 mmol/L [facility] Chloride 112(H) 97 - 110 mmol/L [facility] CO2 28 22 - 32 mmol/L [facility] Anion gap 3 2 - 15 mmol/L [facility] BUN 13 6 - 25 mg/dL [facility] Creatinine 0.83 0.60 - 1.10 mg/dL [facility] Glucose 90 70 - 199 mg/dL [facility] Comment: Interpretive Data Fasting glucose >/= 126 mg/dl is diagnostic for diabetes. Fasting is defined as no caloric intake for at least 8 hours. Fasting glucose between 100 mg/dl to 125 mg/dl is diagnostic of prediabetes. In a patient with classic symptoms of hyperglycemia or hyperglycemic crisis, a random glucose >/= 200 mg/dl is diagnostic for diabetes. In the absence of unequivocal hyperglycemia, results should be confirmed by repeat testing. The classification and Diagnosis of Diabetes Diabetes Care 202; 46: S19-S40. Current interpretive data was last revised 2022. Calcium 8.8 8.5 - 10.3 mg/dL [facility] Bilirubin, total 0.4 0.1 - 1.2 mg/dL [facility] Protein, pl 7.1 6.5 - 8.5 g/dL [facility] Albumin 3.7 3.5 - 5.0 g/dL [facility] Alk phos 53 40 - 130 Units/L [facility] ALT 7 7 - 45 Units/L [facility] AST 15 10 - 45 Units/L [facility] Blood 08/29/2024 10:1 3 AM SECONDARY HISTORY TEACHER 08/29/2024 10:33 AM SECONDARY HISTORY TEACHER Lynnette Figueroa NP LAB BLOOD ORDERABLES Final Result [facility] [place] [address] * Dexa TBS Axial Skeleton Bone Density 1 or more sites (09/22/2023 11:16 AM SECONDARY HISTORY TEACHER) Anatomical Region Laterality Modality Wrist, Body N/A Radiographic Meghan ging Narrative 09/22/2023 2:01 PM SECONDARY HISTORY TEACHER Patient Name: Jennie Weber Date of : 1950 Date of scan: 09/22/2023 Bone mineral density was performed on a [email or web address] Discovery Densitometer. Based on machine cross-calibration and precision studies the least significant changes of this densitometer is 0.024 g/cm2 at the spine, 0.020 g/cm2 at the total proximal femur, and 0.014g/cm2 at the forearm. HISTORY: This is a 72 y.o. postmenopausal female with a history of low bone mass. She reports that she has never smoked. She has never used smokeless tobacco. previously treated with alendronate (Fosamax) and hormone replacement therapy and current complaint of arm pain, back pain, neck pain, and leg pain. INDICATIONS: Menopause status and history of low bone mass. FINDINGS: BONE MINERAL DENSITY OF THE LUMBAR SPINE Bone Mineral Density (BMD) of the lumbar spine was measured from L1-L4 and the average density was calculated to be 0.805 gm/cm2. This corresponds to a T-score (standard deviations from the mean of young adults) of -2.2. There is no previous study available for comparison. BONE MINERAL DENSITY OF THE PROXIMAL FEMUR Bone Mineral Density (BMD) of the left hip total was found to be 0.672 gm/cm2. This corresponds to a T-score standard deviations from the mean of young adults of -2.2. Femoral neck is 0.618 gm/cm2 with a T-score (standard deviations from the mean of young adults) of -2.1. There is no previous study available for comparison. SUMMARY: Bone mineral density shows evidence of low bone mass at the lumbar spine and proximal femur and moderately increased fracture risk (Osteopenia). The lumbar spine Trabecular Bone Score is 1.151 which suggests degraded bone microarchitecture compared to the general population. Final decisions regarding diagnostic or therapeutic recommendations should include BMD, TBS, additional clinical risk factors as well the clinical context of the patient. Please see attached TBS results for further details. ADDITIONAL COMMENTS: Postmenopausal Women and Men Over 50: Diagnostic criteria: Osteoporosis: BMD at or below -2.5 T-score; Osteopenia (low bone mass): BMD between -1.0 and -2.5 T-score. If the patient has a history of a fragility fracture, a fracture that occurred with trauma equivalent to a fall from a standing position or less, then the diagnosis is osteoporosis regardless of bone density. The history and data sections of the bone mineral density scan were prepared by Satnam Foster who is accredited by the International Society of Clinical Densitometry. The overall patient assessment and scan interpretation were performed by Charlie Napoles MD who is certified by the International Society of Clinical Densitometry. [id number] Charlie Napoles MD [facility] DXA PROCEDURES Final Resul t * Stool DNA - Cologuard (09/27/2022 9:00 PM SECONDARY HISTORY TEACHER) [facility] Stool DNA - Cologuard Negative Negative [employer] (CLIA #:[id number]) Comment: NEGATIVE TEST RESULT. A negative Cologuard result indicates a low likelihood that a colorectal cancer (CRC) or advanced adenoma (adenomatous polyps with more advanced pre-malignant features) is present. The chance that a person with a negative Cologuard test has a colorectal cancer is less than 1 in 1500 (negative predictive value >99.9%) or has an advanced adenoma is less than 5.3% (negative predictive value 94.7%). These data are based on a prospective cross-sectional study of 10,000 individuals at average risk for colorectal cancer who were screened with both Cologuard and colonoscopy. (Gloria Quiles al, N Engl J Med 2014;370(14):9751-3968) The normal value (reference range) for this assay is negative. COLOGUARD RE-SCREENING RECOMMENDATION: Periodic colorectal cancer screening is an important part of preventive healthcare for asymptomatic individuals at average risk for colorectal cancer. Following a negative Cologuard result, the [place] Cancer Society and U.S. Multi-Society Task Force screening guidelines recommend a Cologuard re-screening interval of 3 years. References: [place] [employer] Guideline for Colorectal Cancer Screening: https://www.cancer.org/cancer/uhold-pusalm-gfqynz/djnzvwjvs-qultdmjpz-yaszzdu/ac s-rec ommendations.html.; Julian DK, Steffanie MEMBRENO, Derrick IrwinK, Colorectal Cancer Screening: Recommendations for Physicians and Patients from the U.S. Multi-Society Task Force on Colorectal Cancer Screening , Am J Gastroenterology 2017; 112:3767-1307. TEST DESCRIPTION: Composite algorithmic analysis of stool DNA-biomarkers with hemoglobin immunoassay. Quantitative values of individual biomarkers are not reportable and are not associated with individual biomarker result reference ranges. Cologuard is intended for colorectal cancer screening of adults of either sex, 45 years or older, who are at average-risk for colorectal cancer (CRC). Cologuard has been approved for use by the U.S. FDA. The performance of Cologuard was established in a cross sectional study of average-risk adults aged 50-84. Cologuard performance in patients ages 45 to 49 years was estimated by sub-group analysis of near-age groups. Colonoscopies performed for a positive result may find as the most clinically significant lesion: colorectal cancer [4.0%], advanced adenoma (including sessile serrated polyps greater than or equal to 1cm diameter) [20%] or non- advanced adenoma [31%]; or no colorectal neoplasia [45%]. These estimates are derived from a prospective cross-sectional screening study of 10,000 individuals at average risk for colorectal cancer who were screened with both Cologuard and colonoscopy. (Gloria Liu, N Engl J Med 2014;370(14):6058-7142.) Cologuard may produce a false negative or false positive result (no colorectal cancer or precancerous polyp present at colonoscopy follow up). A negative Cologuard test result does not guarantee the absence of CRC or advanced adenoma (pre-cancer). The current Cologuard screening interval is every 3 years. ([place] [employer] Society and U.S. Multi-Society Task Force). Cologuard performance data in a 10,000 patient pivotal study using colonoscopy as the reference method can be accessed at the following location: www.[employer]/results. Additional description of the Cologuard test process, warnings and precautions can be found at www.cologShareightrd.com. Stool 09/27/2022 9:00 PM SECONDARY HISTORY TEACHER 09/29/2022 10:27 AM SECONDARY HISTORY TEACHER Shakila Meléndez MD LAB BODY FLUIDS AND STOOLS ORDERABLES Final Result [employer] (CLIA #:[id number]) [address] [place] [address] * COLONOSCOPY (03/11/2022 8:49 AM CDT) Anatomical Region Laterality Modality Other Narrative Procedure Note Fredis Trinidad MD - 03/11/2022 8:49 AM CDT [facility] Patient Name: Jennie Weber Procedure Date: 03/11/2022 8:49 AM Date of : 1950 Admit Type: Outpatient Age: 71 Gender: Female Attending MD: Fredis Trniidad M.D. Room: [facility] ENDOSCOPY ROOM 8 Note Status: Finalized Procedure: Colonoscopy Indications: Hematochezia Referring MD: Prashant Ty M.D. Providers: Fredis Trinidad M.D. Medicines: Monitored Anesthesia Care Complications: No immediate complications. Estimated Blood Loss: Estimated blood loss: none. Procedure: Pre-Anesthesia Assessment: - Immediately prior to administration ofmedications, the patient was re-assessed for adequacy to receive sedatives. - The risks and benefits of the procedure and the sedation options and risks were discussed with the patient. All questions were answered and informed consent was obtained. The benefits, risks and alternatives of theprocedure and sedation were discussed and informed consentwas obtained. All questions were answered. Please referto the signed informed consent document in the medical record. The scope was passed under direct vision.The CF HQ [id number] endoscope was introducedthrough the anus and advanced to the cecum, identified by appendiceal orifice and ileocecal valve. The colonoscopy was performed without difficulty. The patient tolerated the procedure well. The qualityof the bowel preparation was good. The quality of the bowel preparation was evaluated using the BBPS([place] Bowel Preparation Scale) with scores of: RightColon = 3, Transverse Colon = 3 and Left Colon = 3 (entire mucosa seen well with no residual staining, small fragments of stool or opaque liquid). The totalBBPS score equals 9. The bowel preparation used was GoLYTELY via split dose instruction. Bowel prep was administered using a split dose. Findings: Multiple small and large-mouthed diverticula were found in the entire colon. Two semi-sessile polyps were found in the transverse colon. Thepolyps were 6 to 8 mm in size. These polyps were removed with a hot snare. Resection and retrieval were complete. Internal hemorrhoids were found. The hemorrhoids were mild. Impression: - Diverticulosis in the entire examined colon. - Two 6 to 8 mm polyps in the transverse colon, removed with a hot snare. Resected and retrieved. - Internal hemorrhoids. Recommendation: - Await pathology results. - Repeat colonoscopy in 5 years for surveillancebased on pathology results. - A polyp or polyps were removed during your colonoscopy today. After the pathology result ofthe polyp(s) is reviewed, the doctor who performedyour colonoscopy will recommend follow-up colonoscopy to you based on current guidelines by gastroenterology societies: - If only small hyperplastic polyps from the rectumor sigmoid were removed, repeat the colonoscopy in 10 years. - If 1 or 2 polyps less than 1 cm in size are adenomas, repeat the colonoscopy in 5 years. - If 3 or more polyps are adenomas, repeat the colonoscopy in 3 years. - If there are 10 or more adenomas, repeat the colonoscopy in 1 year. - If any polyp is 10 mm or greater in size, has villous histology or high grade dysplasia,repeat the colonoscopy in 3 years. - If a polyp greater than 2 cm was removed with a piecemeal technique, repeat the colonoscopy in 6 months to be certain that there is no residualpolyp. - Sessile serrated polyps are treated like adenomas for surveillance purposes. Electronically signed by Fredis Trinidad MD Fredis Trinidad M.D. 03/11/2022 9:27:53 AM . Number of Addenda: 0 Note Initiated On: 03/11/2022 8:49 AM Recognized by the [employer] for promoting quality in endoscopy us Fredis Trinidad MD ENDOSCOPY PROCEDURES Final Result * Hepatitis C antibody (03/27/2019 9:57 AM CDT) Hep C Ab NON-REACT BAL NON-REACT BAL [facility] [place] SIGNAL TO CUT-OFF 0.01 <1.00 [facility] [place] Comment: HCV antibody was non-reactive. There is no laboratory evidence of HCV infection. In most cases, no further action is required. However, if recent HCV exposure is suspected, a test for HCV RNA (test code 97242) is suggested. For additional information please refer to http://education.[employer]/faq/MWM49c3 (This link is being provided for informational/ educational purposes only.) Blood specimen (specimen) 03/27/2019 9:57 AM CDT 03/27/2019 9:57 AM CDT Narrative [facility] - 03/28/2019 10:28 AM CDT FASTING:YES FASTING: YES Resulting Agency Comment Performing Organization Information: Site ID: [id number] Name: [facility] Address: [address] [id number] Director: José Luis Lopez D.O., MPH us Prashant Ty MD LAB MICROBIOLOGY - GENERA L ORDERABLES Final Result [facility] Emanuel from Last 3 Months or Most Recently Relevant to Health Maintenance Insurance [employer] MEDICARE FORMERLY [facility] MEDICARE FORMERLY [facility] MEDICARE FORMERLY [facility] MEDICARE Advance Directives For more information, please contact: [phone] * Full Code (Latest Code Status on File) Date Activated Date Inactivated Comments 03/11/2022 8:27 AM 03/11/2022 2:04 PM Care Teams Baker Operator Automatic Relationship Specialty Start Date End Date Prashant Ty MD [address] [place] [address] DR [address]onda [address] [place] [address] PCP - General 05/19/17 Huy Stark MD PhD [address] [place], [place] [address]RON[address] [place] [address] Surgeon Ophthalmology 08/07/18 Shakila Meléndez MD [address] [place], [place] [address] [place] [address] Medical Oncologist/Hematologis t Medical Oncology 08/07/18 Frannie Marroquin MD [address] [facility] [place] [facility] [[email or web address] [address] [place] [address] Consulting Physician Dermatology 08/09/19 Maria R Vee MD [address] [facility] [id number] [place] [address] Director Of Individual Giving Obstetrics and Gynecology 08/13/21 Cecilia Chavez MD [address] [place] [id number] Consulting Physician Bariatrics 08/01/24
--- OUTSIDE RECORDS SUMMARY | 2024-11-18 18:10 | XMS_ITS | Clinical Summary ---
Author Organization [facility] Address [address] [place] [address] Care Team Providers Care Miller Head Assistant Wet Process Name Role Phone Prashant Ty MD Primary Care Provider [phone] Huy Stark MD PhD Unavailable + Shakila Meléndez MD Unavailable Frannie Marroquin MD Unavailable Maria R Vee MD Unavailable [phone] Cecilia Chavez MD Unavailable [phone] Allergies Active Allergy Reactions Criticality Noted Date [...] 2023 Assessment & Plan (08/27/2024 10:04 AM TRANSPORT ENGINEER): She hs fluctuating pain in both uppper and lower back with known DDD in both locations. Benign exam. Advised OTC analgesics PRN. Refer to PT. Dry eye syndrome of both eyes 04/12/2024 Assessment & Plan (10/11/2024 3:23 PM TRANSPORT ENGINEER): Pfats TID+ Assessment & Plan (04/12/2024 11:17 AM CDT): Discontinue Restasis Rec pfats TID+ OU Lumbar degenerative disc disease 08/23/2023 Assessment & Plan (08/27/2024 10:04 AM TRANSPORT ENGINEER): She hs fluctuating pain in both uppper and lower back with known DDD in both locations. Benign exam. Advised OTC analgesics PRN. Refer to PT Assessment & Plan (08/23/2023 10:08 AM TRANSPORT ENGINEER): Chronic. Intermittent. Benign exam. Check Xrays. Continue OTC analgesics PRN. Advised HEP. Iron deficiency anemia 01/05/2023 Assessment & Plan (08/27/2024 9:57 AM TRANSPORT ENGINEER): Recently recurrent. She begins a series of 3 injectafer infusions next week. Assessment & Plan (08/01/2024 11:39 AM TRANSPORT ENGINEER): Resolved when last checked. Previously, she has [...] again. Assessment & Plan (08/23/2023 10:14 AM TRANSPORT ENGINEER): Resolved when last checked. Now with mild recurrent anemia. Recheck labs. She is scheduled to see Dr. Meléndez in early 08/2023. Status post LASIK surgery of both eyes 3 History of adenomatous polyp of colon 08/16/2022 Assessment & Plan (08/27/2024 9:54 AM TRANSPORT ENGINEER): Up to date on colonoscopy Assessment & Plan (08/23/2023 10:00 AM TRANSPORT ENGINEER): Up to date on colonoscopy Assessment & Plan (08/16/2022 1:29 PM TRANSPORT ENGINEER): Up to date on colonoscopy Floppy eyelid [...] atrophy Assessment & Plan (10/25/2022 2:20 PM TRANSPORT ENGINEER): BCVA 20/90, variable looking through past viists. Stable retinal thinning and superior small schisis cavity. No subjective changes. No choroidal neovascular membrane (CNVM) on OCT. Copying Dr. Stark. Assessment & Plan (10/13/2021 9:26 AM TRANSPORT ENGINEER): Status post PDT in 2003 OD. OCT [...] 01/09/2019 Assessment & Plan (10/11/2024 3:24 PM TRANSPORT ENGINEER): RTC with any acute vision changes Assessment & Plan (04/12/2024 11:16 AM CDT): Cont with current Rx RTC immediately with any acute vision changes, fl/floaters Assessment & Plan (10/13/2023 10:38 AM TRANSPORT ENGINEER): No e/o choroidal neovascular membrane (CNVM). RTC [...] 05/11/2016 Assessment & Plan (08/27/2024 9:55 AM TRANSPORT ENGINEER): RAFA. Benign exam. Followed by [facility]. Assessment & Plan (08/23/2023 10:15 AM TRANSPORT ENGINEER): RAFA. Benign exam. She is scheduled to see Dr. Meléndez next month Assessment & Plan (08/16/2022 1:47 PM TRANSPORT ENGINEER): RAFA. Benign exam. Released from Oncology follow up. 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 Prior followed by Dr. 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 Followed by Dr. Meléndez Assessment & Plan (08/12/2020 10:05 AM TRANSPORT ENGINEER): RAFA. She remains in remission. Followed by Dr. Meléndez Assessment & Plan (08/09/2019 10:04 AM TRANSPORT ENGINEER): RAFA. Followed by Dr. Meléndez Assessment & Plan (08/08/2018 10:06 AM TRANSPORT ENGINEER): She remains in remission. Followed by Dr. Meléndez. Osteoarthritis of right shoulder 07/30/2015 Insomnia 02/20/2013 Assessment & Plan (08/23/2023 10:10 AM TRANSPORT ENGINEER): Intermittent. She takes the Ambien 5 mg about twice weekly. No evidence of abuse. Assessment & Plan (08/16/2022 1:33 PM TRANSPORT ENGINEER): Intermittent. She takes the Ambien 5 mg about twice weekly. Assessment & Plan (03/31/2022 9:27 AM CDT): Intermittent. She takes the Ambien 5 mg 2-3x/week Referral to sleep medicine to discuss concerns of uncontrolled HTN, poss JOHNY & insomnia eval Assessment & Plan (12/30/2021 9:41 AM CDT): Intermittent. She takes the Ambien 5 mgg about twice weekly. Assessment & Plan (08/12/2020 10:04 AM TRANSPORT ENGINEER): Intermittent. Improving. She now only takes Ambien when travelling and sleeping in a hotel. Assessment & Plan (08/09/2019 10:04 AM TRANSPORT ENGINEER): Infrequent. She only take Zolpidem when she travels. Assessment & Plan (08/08/2018 10:07 AM TRANSPORT ENGINEER): Infrequent. She rarely uses zolpidem. Osteopenia 11/19/2011 Overview (09/22/2023): Her FRAX adjusted for TBS is 3.6% at hip 08/2023 Assessment & Plan (08/27/2024 10:03 AM TRANSPORT ENGINEER): Followed by [facility]. Assessment & Plan (09/22/2023 2:07 PM TRANSPORT ENGINEER): We will start ALN and plan a [...] . Assessment & Plan (08/23/2023 10:06 AM TRANSPORT ENGINEER): Up to date on DEXA. Counseled on regular exercise. She is scheduled to see [facility] next month. Assessment & Plan (08/13/2021 9:44 AM TRANSPORT ENGINEER): Up to date on DEXA Hay fever 03/18/2011 Assessment & Plan (08/27/2024 10:01 AM TRANSPORT ENGINEER): Her PND is likely due to this. I recommend OTC medication, including antihistamines, flonase, mucinex PRN. Hyperlipidemia 03/18/2011 Assessment & Plan (08/27/2024 9:53 AM TRANSPORT ENGINEER): I discussed ASCVD risk. I spent 15 [...] regimen. Assessment & Plan (08/23/2023 10:01 AM TRANSPORT ENGINEER): I discussed ASCVD risk. I spent 15 [...] regimen. Assessment & Plan (08/16/2022 1:30 PM TRANSPORT ENGINEER): I discussed ASCVD risk. I spent 15 [...] regimen. Assessment & Plan (08/13/2021 9:45 AM TRANSPORT ENGINEER): I spent 15 minutes counseling her on [...] regimen. Assessment & Plan (08/12/2020 10:04 AM TRANSPORT ENGINEER): I spent 15 minutes counseling her on [...] regimen. Assessment & Plan (08/09/2019 10:03 AM TRANSPORT ENGINEER): I spent 15 minutes counseling her on [...] regimen Assessment & Plan (08/08/2018 10:07 AM TRANSPORT ENGINEER): I spent 15 minutes counseling her on [...] 03/18/2011 Assessment & Plan (08/27/2024 9:53 AM TRANSPORT ENGINEER): Hypertension is stable Continue current treatment regimen. Regular aerobic exercise. Continue current medications. Blood pressure will be reassessed at the next regular appointment. Assessment & Plan (02/06/2024 9:48 AM CDT): Hypertension is stable Continue current treatment regimen. Regular aerobic exercise. Continue current medications. Blood pressure will be reassessed at the next regular appointment. Assessment & Plan (08/23/2023 10:10 AM TRANSPORT ENGINEER): Hypertension is controlled on home monitoring, although mildly high here today. Continue current treatment regimen. Regular aerobic exercise. Continue current medications. Ambulatory blood pressure monitoring. Blood pressure will be reassessed at the next regular appointment. Assessment & Plan (11/02/2022 12:22 PM TRANSPORT ENGINEER): Hypertension is improving with treatment Continue current treatment regimen. Regular aerobic exercise. Continue current medications. Blood pressure will be reassessed at the next regular appointment. Assessment & Plan (08/16/2022 1:41 PM TRANSPORT ENGINEER): Hypertension is uncontrolled. Continue current treatment regimen. [...] olmesartan Assessment & Plan (11/17/2021 9:45 AM TRANSPORT ENGINEER): HTN improving on home montoring, but still high here. I suspect reactive HTN. We discussed options. Continue current reigmen and home monitoring. Recheck in about 8 weeks; she will bring her cuff to compare. Assessment & Plan (08/13/2021 10:09 AM TRANSPORT ENGINEER): Hypertension is worsening Dietary sodium restriction. Regular aerobic exercise. Medication changes per orders. Blood pressure will be reassessed in 3 months. Add ARB. Assessment & Plan (10/09/2020 11:02 AM TRANSPORT ENGINEER): Hypertension is stable Continue current treatment regimen. Regular aerobic exercise. Continue current medications. Blood pressure will be reassessed at the next regular appointment. Assessment & Plan (08/12/2020 10:04 AM TRANSPORT ENGINEER): Hypertension is stable Continue current treatment regimen. Regular aerobic exercise. Continue current medications. Ambulatory blood pressure monitoring. Blood pressure will be reassessed at the next regular appointment. Assessment & Plan (08/09/2019 10:03 AM TRANSPORT ENGINEER): Hypertension is controlled Continue current treatment regimen. Regular aerobic exercise. Continue current medications. Blood pressure will be reassessed at the next regular appointment. Assessment & Plan (08/08/2018 10:07 AM TRANSPORT ENGINEER): Hypertension is controlled.. Continue current treatment regimen. Regular aerobic exercise. Continue current medications. Ambulatory blood pressure monitoring. Blood pressure will be reassessed at the next regular appointment. Macular degeneration 03/18/2011 Combined forms of age-related cataract of both e yes Overview (01/20/2021): Age-related nuclear cataract, bilateral - (Added by TW Conv) Assessment & Plan (10/11/2024 3:24 PM TRANSPORT ENGINEER): Not yet v/s left eye (OS) - monitor/defer cataract extraction (CE) until s/sx indicate Assessment & Plan (04/12/2024 11:15 AM CDT): Best-corrected visual acuity (BVA) stable, monitor Assessment & Plan (10/13/2023 10:38 AM TRANSPORT ENGINEER): Tr central posterior subcapsular cataract (PSC) both eyes (OU), visually functioning adequately, monitor Assessment & Plan (05/31/2023 11:11 AM CDT): Discussed cataract and continued follow up with Dr Juárez Assessment & Plan (10/13/2021 9:26 AM TRANSPORT ENGINEER): Defer cataract surgery until signs and symptoms indicate Resolved Problems Problem Noted Date Diagnosed Date Resolved Date Vitreous syneresis of both eyes 01/09/2019 08/08/2020 Thoracic radiculitis 12/14/2016 018 Supraventricular tachycardia 03/18/2015 08/08/2018 Encounters Date Type Department Care Team Description 10/24/2024 9:35 AM TRANSPORT ENGINEER - 10/24/2024 11:59 PM TRANSPORT ENGINEER Hospital Encounter [facility] [address] [facility] [address] [place] [address] Encounter for screening mammogram for malignant neoplasm of breast Discharge Disposition: Discharge to home or self care 10/16/2024 Orders Only [facility] [address] [place] [address] Ave [address] [place] [phone] Tracy Unger RN 10/11/2024 10:30 AM TRANSPORT ENGINEER Office Visit [facility] Ophthalmology [address] [facility] [address] [facility] [facility] [place] [place] [address] Nano Juárez, OD Macular degeneration of both eyes, unspecified type (Primary Dx); Status post LASIK surgery of both eyes; Both eyes affected by degenerative myopia with other maculopathy; Degenerative myopia of right eye, unspecified whether complication present; Dry eye syndrome of both eyes 10/11/2024 10:20 AM TRANSPORT ENGINEER Imaging Exam [facility] Ophthalmology [address] [facility] [address] [place] [address] 09/28/2024 6:00 PM TRANSPORT ENGINEER Office Visit [facility] at [address] [address] Miguelina Cardona, [place] Right acute serous otitis media, recurrence not specified (Primary Dx) 09/21/2024 9:00 AM TRANSPORT ENGINEER Infusion [facility] [address] [place] [phone] Iron deficiency anemia, unspecified iron deficiency anemia type (Primary Dx) 09/13/2024 9:00 AM TRANSPORT ENGINEER Infusion [facility] [address] [place] [phone] Iron deficiency anemia, unspecified iron deficiency anemia type (Primary Dx); Fatigue, unspecified type 09/07/2024 9:00 AM TRANSPORT ENGINEER Infusion [facility] [address] [facility] [address] [place] [address] Iron deficiency anemia, unspecified iron deficiency anemia type (Primary Dx) 08/29/2024 11:00 AM TRANSPORT ENGINEER Office Visit [facility] Oncology [address] [facility] [address] 6 [place] [address] Shakila Meléndez MD History of B-cell lymphoma (Primary Dx) 08/29/2024 10:00 AM TRANSPORT ENGINEER Lab [facility] [address] [facility] [address] [place] [address] History of B-cell lymphoma 08/27/2024 10:00 AM TRANSPORT ENGINEER Office Visit [address] [place] [phone] Prashant Ty MD Medicare annual wellness visit, [...] disc disease), thoracic from Last 3 Months Immunizations Immunization Administration Dates Next Due Influenza, [...] SARS-CoV-2 Monovalent Vaccination (12+ Yrs) PURPLE 06/25/2021,11/22/2020,10/30/2020 Pfizer Sars-Cov-2 Bivalent V accination (12+ YRS) 07/04/2022 Pneumococcal Conjugate PCV 13 08/04/2016 Pneumococcal Polysaccharide PPV23 07/30/2015 RSV Vaccine, Pref, Recombina nt, Subunit, Adjuvanted, PF, IM (Arexvy) 08/17/2024 Sars-cov-2 Covid-19 Mrna, Bi valent, Original/omicron Ba.1 07/19/2023 Tdap 11/22/2022,03/18/2011 ZOSTER LIVE 05/27/2013 ZOSTER Recombinant 08/09/2022,04/20/2022, 020 Surgical History Surgery Date Site/Laterality Comments LASIK Corneal LASIK - (Added by TW Conv) SHOULDER SURGERY Shoulder Surgery - (Added by TW Conv) RETINAL LASER PROCEDURE Right PDT Medical History Medical History Date Comments Personal history of diseases of skin or subcutaneous tissue History of lichen planus - ( Added by TW Conv) Superior glenoid labrum lesi on of right shoulder Tear of right glenoid labrum - (Added by TW Conv) 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 - (Added by TW Conv) Personal history of diseases of skin or subcutaneous tissue History of actinic keratosis - (Added by TW Conv) Personal history of other di seases of the nervous system and sense organs History of macular degeneration - (Added by TW Conv) Intermediate stage nonexudat bal age-related macular degeneration of both eyes Intermediate stage dry age-r elated macular degeneration of both eyes - (Added by TW Conv) Degenerative myopia Pathologic m yopia - (Added by TW Conv) Age-related nuclear cataract of both eyes Age-related nuclear cataract , bilateral - (Added by TW Conv) Other vitreous opacities, un specified eye Vitreous syneresis - (Added by TW Conv) Myopic degeneration, right eye 01/09/2019 Macular degeneration 03/18/2011 Vitreous syneresis of both eyes 01/09/2019 Degenerative myopia of both eyes 01/09/2019 Diverticulosis GERD (gastroesophageal reflux disease) Anemia Osteoporosis Hypertension Family History Medical History Relation Name Comments Coronary artery disease Father [place] Heart attack Father [place] Heart failure Father [place] Alcohol abuse Mother Cecilia Hill Stroke Mother Cecilia Hill Relation Name Status Comments Father [place] Maternal Grandfather Maternal Grandmother Mother Cecilia Hill Paternal Grandfather Paternal Grandmother Social History Tobacco Use Types Packs/Day Years [...] on file Legal Sex Female 3:42 AM TRANSPORT ENGINEER Gender Identity Not on file Sexual Orientation Not on file Obstetrics History Para Term AB IAB SAB Ectopic Multiple Livin g Live Births 4 4 4 4 4 Date Outcome GA Total Labor Labor/2nd/3rd Weight Sex Type Anes PTL Shireen A1 A5 Name Clin Term Vag-S pont Living Term Vag-S pont Living Term Vag-S pont Living Term Vag-S pont Living Last Filed Vital Signs Vital Sign Reading Time Taken Comments Blood Pressure 139/83 09/28/2024 6:00 PM TRANSPORT ENGINEER Pulse 81 09/28/2024 6:00 PM TRANSPORT ENGINEER Temperature 36.7 C (98 F) 09/28/2024 6:00 PM TRANSPORT ENGINEER Respiratory Rate 20 09/28/2024 6:00 PM TRANSPORT ENGINEER Oxygen Saturation 98% 09/28/2024 6:00 PM TRANSPORT ENGINEER Inhaled Oxygen Concentration - - Weight 61.2 kg (135 lb) 09/28/2024 6:00 PM TRANSPORT ENGINEER Height 162.6 cm (5' 4 ) 09/28/2024 6:00 PM TRANSPORT ENGINEER Body Mass Index 23.17 09/28/2024 6:00 PM TRANSPORT ENGINEER Plan of Treatment Scheduled Procedures Name Priority Associated Diagnoses Date/Ti me COLONOSCOPY Rectal bleeding Health Maintenance Due Date Last Done Comments Covid-19 Vaccine (2023-10 5 season) 2024 07/19/2023, 07/19/2023, 07/04/2022, Additional history exists Depression Screening 08/27/2025 08/27/2024, 08/23/2023, 08/16/2022, Additional history exists Fall Risk Assessment 08/27/2025 08/27/2024, 08/23/2023, 08/16/2022, Additional history exists Well Visit 65+ 08/27/2025 08/27/2024, 07/28, 08/16/2022, Additional history exists Osteoporosis Screening-Bone Density Scan 09/22/2025 09/22/2023, 08/16/2022, 10/19/2019, Additional history exists Colon Cancer Screening-Colonoscopy 03/11/2027 03/11/2022, 12/01/2015 DTaP/Tdap/Td Vaccine (3 - Td or Tdap) 11/22/2032 11/22/2022, 03/18/2011 Pneumococcal vaccine 65+ Completed 08/04/2016, 12/2014 Hepatitis C Screening Completed 03/27/2019 Colon Cancer Screening-CT Colonography Discontinued 03/11/2022, 12/01/2015 Colon Cancer Screening-Sigmoidoscopy Discontinued 03/11/2022, 12/01/2015 Zoster Vaccine Completed 08/09/2022, 03/27, 08/12/2020, Additional history exists Colon Cancer Screening-DNA Stool Discontinued 09/27/2022, 03/11/2022, 12/01/2015 Colon Cancer Screening-FIT Discontinued 09/27, 03/11/2022, 12/01/2015 Influenza Vaccine Completed 08/17/2024, , 07/01/2022, Additional history exists Breast Cancer Screening-Mammogram Discontinued 10/24/2024, 10/20/2023, 10/06/2022, Additional history exists Hepatitis B Screening Discontinued Procedures Procedure Name Priority Date/Time Associated Diagnosis Comments SCREENING MAMMOGRAM BILATERAL W YOGESH Schedule Routine, Read Routine (OP Routine) 10/24/2024 9:49 AM TRANSPORT ENGINEER Encounter for screening mammogram for malignant neoplasm of breast OCT, RETINA - OU - BOTH EYES Routine 10/11/2024 10:19 AM TRANSPORT ENGINEER Macular degeneration of both eyes, unspecified type EGFR Routine 08/29/2024 10:13 AM TRANSPORT ENGINEER History of B-cell lymphoma DIFFERENTIAL AUTO Routine 08/29/2024 10: 13 AM TRANSPORT ENGINEER History of B-cell lymphoma CBC WITH AUTO DIFFERENTIAL Routine 08/29/2024 10:13 AM TRANSPORT ENGINEER History of B-cell lymphoma COMPREHENSIVE METABOLIC PANEL Routine 08/29/2024 10:13 AM TRANSPORT ENGINEER History of B-cell lymphoma LACTATE DEHYDROGENASE Routine 08/29/2024 10:13 AM TRANSPORT ENGINEER History of B-cell lymphoma DEXA TBS AXIAL SKELETON BONE DENSITY 1 OR MORE SITES Schedule Routine, Read Routine (OP Routine) 09/22/2023 11:16 AM TRANSPORT ENGINEER Osteoporosis, unspecified osteoporosis type, unspecified pathological fracture presence STOOL DNA COLOGUARD Routine 09/27/2022 9:00 PM TRANSPORT ENGINEER Colon cancer screening COLONOSCOPY 03/11/2022 8:49 AM CDT HEPATITIS C ANTIBODY Routine 03/27/2019 9:57 AM CDT Need for hepatitis C screening test from Last 3 Months or Most Recently Relevant to Health Maintenance Results * Screening Mammogram Bilateral W Yogesh (10/24/2024 9:49 AM TRANSPORT ENGINEER) Anatomical Region Laterality Modality Breast Bilateral Mammography Narrative 10/24/2024 2:58 PM TRANSPORT ENGINEER Mammogram Technique: Bilateral Digital Breast Tomosynthesis, Bilateral C-view 2D Screening mammogram. Views obtained: bilateral craniocaudal and bilateral mediolateral oblique. Computer Aided Detection was performed. Mammogram Findings: The present examination has been compared to prior imaging studies performed at [facility] on 10/20/2020, 10/06/2022 and 10/20/2023. There are [...] compared to prior imaging studies performed at [facility] on 10/20/2020, 10/06/2022 and 10/20/2023. There are scattered areas of fibroglandular density. There is no suspicious abnormality in either breast. Impression: There is no mammographic evidence of malignancy. Annual screening mammography is recommended. OVERALL FINAL ASSESSMENT: BI-RADS CATEGORY 1: Negative. us Prashant Ty MD IMG MAMMO PROCEDURES Kitty l Result * OCT, Retina - OU - Both Eyes (10/11/2024 10:19 AM TRANSPORT ENGINEER) Central Macular Thickness OS 259 mircometers CONTINUUM Central Macular Thickness OD 249 micrometers CONTINUUM Anatomical Region Laterality Modality Head Other Narrative 10/11/2024 3:24 PM TRANSPORT ENGINEER Right Eye Quality was good. Progression has been stable. Findings include macular pucker. Macular thickness was 249 micrometers. Left Eye Quality was borderline. Progression has been stable. Findings include macular pucker. Macular thickness was 259 mircometers. Notes Right eye (OD): Extensive myopic degeneration with atrophy Left eye (OS): staphyloma, no subretinal fluid (SRF), erm PPA OU us Nano Juárez OD OPHTH TOMOGRAPHY Final Res ult * eGFR (08/29/2024 10:13 AM TRANSPORT ENGINEER) eGFR 74 >=60 mL/min/1. 73 m2 Comment: [...] reviewed 2021. Blood 08/29/2024 10:1 3 AM TRANSPORT ENGINEER 08/29/2024 10:33 AM TRANSPORT ENGINEER us Lynnette Figueroa ANODE WORKER LAB BLOOD ORDERABLES Final Result [facility] Department [place] [address] * Differential, auto (08/29/2024 10:13 AM TRANSPORT ENGINEER) Neutrophil abs 2.4 1.5 - 6.5 K/cumm Comment:Testing performed by : [facility], [address] [place] [address] Lymphocyte abs 1.2 0.8 - 3.3 K/cumm [facility] Comment:Testing performed by : [facility], [address] [place] [address] Monocyte abs 0.6 0.2 - 0.8 K/cumm [facility] Comment:Testing performed by : [facility], [address] [place], [place] [id number] Eosinophil abs 0.3 0.0 - 0.5 K/cumm [facility] Comment:Testing performed by : [facility], [address] [place] [phone] Basophil abs 0.1 0.0 - 0.1 K/cumm [facility] Comment:Testing performed by : [facility], [address] [place] [phone] Neutrophil pct 54.0 % [facility] Comment: Interpretive Data Percent cell count reference ranges are not reported, since discordance with absolute values may lead to misinterpretation of CBC data. Current Interpretive Data was last revised on 2018. Testing performed by: [facility], [address] [place] [phone] Lymphocyte pct 26.4 % [facility] Comment: Interpretive Data Percent cell count reference ranges are not reported, since discordance with absolute values may lead to misinterpretation of CBC data. Current Interpretive Data was last revised on 2018. Testing performed by: [facility], [address] [place] [phone] Monocyte pct 12.5 % [facility] Comment: Interpretive Data Percent cell count reference ranges are not reported, since discordance with absolute values may lead to misinterpretation of CBC data. Current Interpretive Data was last revised on 2018. Testing performed by: [facility], [address] [place] [phone] Eosinophil pct 5.8 % [facility] Comment: Interpretive Data Percent cell count reference ranges are not reported, since discordance with absolute values may lead to misinterpretation of CBC data. Current Interpretive Data was last revised on 2018. Testing performed by: [facility], [address] [place] [phone] Basophil pct 1.3 % MIREILLE RAGLAND Comment: Interpretive Data Percent cell count reference ranges are not reported, since discordance with absolute values may lead to misinterpretation of CBC data. Current Interpretive Data was last revised on 2018. Testing performed by: [facility], [address] [place] [phone] Blood 08/29/2024 10:1 3 AM TRANSPORT ENGINEER 08/29/2024 10:30 AM TRANSPORT ENGINEER us Lynnette Figueroa ANODE WORKER LAB BLOOD ORDERABLES Final Result Performing Organization Address City/State/[facility] Co de Phone Number MIREILLE RAGLAND [facility] [place] [address] * (ABNORMAL) CBC with auto differential (08/29/2024 10:13 AM TRANSPORT ENGINEER) WBC 4.5 3.8 - 9.9 K/cumm Comment:Testing performed by : [facility], [address] [place] [phone] Hgb 10.5(L) 11.9 - 15.5 g/dL MIREILLE RAGLAND Comment:Testing performed by : [facility], [address] [place] [phone] Hct 33.7(L) 35.6 - 45.5 % MIREILLE RAGLAND Comment:Testing performed by : [facility], [address] [place] [phone] Plt 330 150 - 400 K/cumm MIREILLE RAGLAND Comment:Testing performed by : [facility], [address] [place] [phone] MPV 8.0 6.8 - 10.4 fL MIREILLE RAGLAND Comment:Testing performed by : [facility], [address] [place], [place] [phone] RBC 3.71(L) 3.90 - 5.20 M/cumm [facility]REILLE [facility] Comment:Testing performed by : [facility], [address] [place], [place] [phone] MCV 90.9 81.3 - 96.4 fL MIREILLE [facility] Comment:Testing performed by : [facility], [address] [place], [place] [phone] MCH 28.2 27.1 - 33.3 pg [facility] Comment:Testing performed by : [facility], [address] [place], [place] [phone] MCHC 31.1(L) 32.3 - 35.7 g/dL MIREILLE [facility] Comment:Testing performed by : [facility], [address] [place] [address] RDW CV 14.9 11.1 - 14.9 % MIREILLE [facility] Comment:Testing performed by : [facility], [address] [place] [address] NRBC abs 0.00 0.00 - 0.01 K/cumm [facility] Comment:Testing performed by : [facility], [address] [place] [address] Blood 08/29/2024 10:1 3 AM TRANSPORT ENGINEER 08/29/2024 10:30 AM TRANSPORT ENGINEER Lynnette Figueroa ANODE WORKER LAB BLOOD ORDERABLES Final Result [facility] Department of Laboratories [place], [place] [id number] * Lactate dehydrogenase (LD) (08/29/2024 10:13 AM TRANSPORT ENGINEER) Lactate dehydrogenase (LDH) 171 100 - 250 Units/L Blood 08/29/2024 10:1 3 AM TRANSPORT ENGINEER 08/29/2024 10:33 AM TRANSPORT ENGINEER Lynnette Figueroa NP LAB BLOOD ORDERABLES Final Result [facility] [place] [address] * (ABNORMAL) Comprehensive metabolic panel (08/29/2024 10:13 AM TRANSPORT ENGINEER) Sodium 143 135 - 145 mmol/L Potassium, pl 4.1 3.3 - 4.9 mmol/L [facility] Chloride 112(H) 97 - 110 mmol/L [facility] CO2 28 22 - 32 mmol/L [facility] Anion gap 3 2 - 15 mmol/L [facility] BUN 13 6 - 25 mg/dL [facility] Creatinine 0.83 0.60 - 1.10 mg/dL [facility] Glucose 90 70 - 199 mg/dL [facility] Comment: Interpretive Data Fasting glucose >/= 126 [...] 2022. Calcium 8.8 8.5 - 10.3 mg/dL [facility] Bilirubin, total 0.4 0.1 - 1.2 mg/dL [facility] Protein, pl 7.1 6.5 - 8.5 g/dL [facility] Albumin 3.7 3.5 - 5.0 g/dL [facility] Alk phos 53 40 - 130 Units/L [facility] ALT 7 7 - 45 Units/L [facility] AST 15 10 - 45 Units/L [facility] Blood 08/29/2024 10:1 3 AM TRANSPORT ENGINEER 08/29/2024 10:33 AM TRANSPORT ENGINEER Lynnette Figueroa NP LAB BLOOD ORDERABLES Final Result [facility] [place] [address] * Dexa TBS Axial Skeleton Bone Density 1 or more sites (09/22/2023 11:16 AM TRANSPORT ENGINEER) Anatomical Region Laterality Modality Wrist, Body N/A Radiographic Meghan ging Narrative 09/22/2023 2:01 PM TRANSPORT ENGINEER Patient Name: Jennie Weber Date of : 1950 Date of scan: 09/22/2023 Bone mineral density was performed on a HoloONtheAIR Discovery Densitometer. Based on machine cross-calibration and [...] by the International Society of Clinical Densitometry. [id number] Charlie Napoles MD IM DXA PROCEDURES Final Resul t * Stool DNA - Cologuard (09/27/2022 9:00 PM TRANSPORT ENGINEER) Pathologist [facility] Stool DNA - Cologuard Negative Negative [facility] (CLIA #:[id number]) Comment: NEGATIVE TEST RESULT. A negative Cologuard [...] screened with both Cologuard and colonoscopy. (Gloria Fairchild et al, N Engl J Med 2014;370(14):4727-6669) The normal value (reference range) for this assay is negative. COLOGUARD RE-SCREENING RECOMMENDATION: Periodic colorectal cancer screening is an important part of preventive healthcare for asymptomatic individuals at average risk for colorectal cancer. Following a negative Cologuard result, the [place] Cancer Society and U.S. Multi-Society Task Force screening guidelines recommend a Cologuard re-screening interval of 3 years. References: [place] Cancer Society Guideline for Colorectal Cancer Screening: https://www.cancer.org/cancer/epzxm-pyizos-xbqgkx/vyyphewfl-jznvjmskr-ocgapqa/ac s-rec ommendations.html.; Julian LEON, Steffanie MEMBRENO, Derrick GARZA, Colorectal Cancer Screening: Recommendations for Physicians and Patients from the U.S. Multi-Society Task Force on Colorectal Cancer Screening , Am J Gastroenterology 2017; 112:1093-6220. TEST DESCRIPTION: Composite algorithmic analysis of stool [...] (Gloria Quiles al, N Engl J Med 2014;370(14):1482-7660.) Cologuard may produce a false negative or false positive result (no colorectal cancer or precancerous polyp present at colonoscopy follow up). A negative Cologuard test result does not guarantee the absence of CRC or advanced adenoma (pre-cancer). The current Cologuard screening interval is every 3 years. ([place] Cancer Society and U.S. Multi-Society Task Force). Cologuard performance data in a 10,000 patient pivotal study using colonoscopy as the reference method can be accessed at the following location: www.exactlabs.com/results. Additional description of the Cologuard test process, warnings and precautions can be found at www.cologuard.com. Stool 09/27/2022 9:00 PM TRANSPORT ENGINEER 09/29/2022 10:27 AM TRANSPORT ENGINEER us Shakila Meléndez MD LAB BODY FLUIDS AND STOOLS ORDERABLES Final Result [facility] (CLIA #:[id number]) [address] [place] [address] * COLONOSCOPY (03/11/2022 8:49 AM CDT) Anatomical Region Laterality Modality Other Narrative Procedure Note Fredis Trinidad MD - 03/11/2022 8:49 AM CDT [facility] ENDOSCOPY [facility] Patient Name: Jennie Weber Procedure Date: 03/11/2022 8:49 AM Date of : 1950 Admit Type: Outpatient Age: 71 Gender: Female Attending MD: Fredis Trinidad M.D. Room: [facility] ENDOSCOPY ROOM 8 Note Status: Finalized Procedure: Colonoscopy Indications: Hematochezia Referring MD: Prashant Ty M.D. Providers: Fredis D. [place], M.D. Medicines: Monitored Anesthesia Care Complications: No [...] passed under direct vision.The CF HQ [id number] endoscope was introducedthrough the anus and advanced to the cecum, identified by appendiceal orifice and ileocecal valve. The colonoscopy was performed without difficulty. The patient tolerated the procedure well. The qualityof the bowel preparation was good. The quality of the bowel preparation was evaluated using the BBPS([place] Bowel Preparation Scale) with scores of: RightColon [...] On: 03/11/2022 8:49 AM Recognized by the [place] Society for Gastrointestinal Endoscopy for promoting quality [...] a test for HCV RNA (test code 11151) is suggested. For additional information please refer to http://education.[employer].EXPO/faq/DWG14c1 (This link is being provided for informational/ educational purposes only.) Blood specimen (specimen) 03/27/2019 9:57 AM CDT 03/27/2019 9:57 AM CDT Narrative [facility] - 03/28/2019 10:28 AM CDT FASTING:YES FASTING: YES Resulting Agency Comment Performing Organization Information: Site ID: [facility] M Name: Reji Deleon-Tracey Address: [address] [address] Director: José Luis oLpez D.O., MPH us Prashant Ty MD LAB MICROBIOLOGY - GENERA L ORDERABLES Final Result [facility] Emanuel from Last 3 Months or Most Recently Relevant to Health Maintenance Insurance [facility] MEDICARE [facility] MEDICARE [facility] MEDICARE [facility] MEDICARE Advance Directives For more information, please contact: [phone] * Full Code (Latest Code Status on File) Date Activated Date Inactivated Comments 03/11/2022 8:27 AM 03/11/2022 2:04 PM Care Teams Miller Head Assistant Wet Process Relationship Specialty Start Date End Date Prashant Ty MD [facility] ISIDRO REEDER [address] [place] [address] PCP - General 05/19/17 Huy Stark MD PhD [facility] [address] [place] [address] Surgeon Ophthalmology 08/07/18 Shakila Meléndez MD [address] [facility] [address] [place] [address] Medical Oncologist/Hematologis t Medical Oncology 08/07/18 Frannie Marroquin MD [address] [facility] [address] [place] [address] Consulting Physician Dermatology 08/09/19 Maria R Vee MD [address] [facility] [phone] [place] [address] Pickle Water Pump Operator Obstetrics and Gynecology 08/13/21 Cecilia Chavez MD [address] [place] [address] Consulting Physician Bariatrics 08/01/24
--- OUTSIDE RECORDS SUMMARY | 2024-11-18 18:10 | XMS_ITS | Continuity of Care Document ---
Author Organization [facility] Address [address] [place] [address] [address] [place] [address] Phone Care Team Providers Care Legal Arbitrator Name Role Phone Tana Avelar Unavailable Unavailable Procedures Procedure Date Office/outpatient Visit, Est Advance Directives Directive Yes / No Effective Date File Name No Information Encounters Encounter Description Practice Location Reason(s) For Visit Diagnoses Date Provider Providers Copied on Encounter Office/outpat ient Visit, Est [facility], [address] [place] [address] [address], [place], [place], [id number], [place] tel:[phone] SEC [facility] No Information 8[address] Rosio Fajardo. [address] , [address], [place], [address], [place]. tel:[phone] Family History Family Member Type Diagnosis Age At Onset No Information Payers Payer name Insurance type Covered alliance party ID Authoriza tion(s) BCBS [place] Commercial CI [id number] Social History Type Description Quantity Date Captured Comments Sex Female Smoking Status No Information Chief Complaint And Reason For Visit No Information Reason For Referral Reason For Referral No Information History Of Present Illness Encounter Date Complaint History Of Prese nt Illness No Information Functional Status Date Functional Assessmen t No Information Instructions Date Instruction Additional Infor mation No Information Assessments Type Assessment Date No Information Patient Care Teams Name Effective Dates (start - stop) Status Members No Information
--- OUTSIDE RECORDS SUMMARY | 2024-11-18 18:10 | XMS_ITS | Patient Health Summary ---
Author Organization [facility] Address [address] [facility] [address] Care Team Providers Care Material Dispatcher Name Role Phone Prashant Ty MD Primary Care Provider [phone] Note from [facility],non-owned Affiliates and Associated Physician Practices is amultiple site organization consisting of ambulatory clinics and hospital sitesin [place], [place], [place] and [place]. This disclosure is being madepursuant to the Care Everywhere program and may not contain all information available regarding this patient. Last updated 18.[facility] [employer] Allergies No known active allergies Medications * Be aware that medications may not be up to date on this document. Alwaysverify current medications with the patient. * DILTIAZEM HCL PO * ATORVASTATIN CALCIUM PO Social History Tobacco Use Types Packs/Day Years Used Date Smoking Tobacco: Never Smokeless Tobacco: Never Sex and Gender Information Value Date Recorded Sex Assigned at Not on file Gender Identity Not on file Sexual Orientation Not on file Last Filed Vital Signs Vital Sign Reading Time Taken Comments Blood Pressure 120/70 12/20/2017 9:51 AM CDT Pulse 87 12/20/2017 9:51 AM CDT Temperature 36.8 C (98.3 F) 12/20/2017 9:51 AM CDT Respiratory Rate 16 12/20/2017 9:51 AM CDT Oxygen Saturation 99% 12/20/2017 9:51 AM CDT Inhaled Oxygen Concentration - - Weight 67.1 kg (148 lb) 12/20/2017 9:51 AM CDT Height 165.1 cm (5' 5 ) 12/20/2017 9:51 AM CDT Body Mass Index 24.63 12/20/2017 9:51 AM CDT Procedures * STREP A SCREEN - POINT OF CARE (AMB) STL(Performed 12/20/2017) Performed for Sore throat Results * STREP A SCREEN (12/20/2017) Strep A Rapid POCT Negative Negative Strep A Internal Control Present Lot # [id number] Expiration Date 10/07/18 Throat ENTIRE THROAT (SURFACE REGION OF NECK) / Unknown 12/20/2017 Evelin Martines RESEARCH SPEC-MANAGER IT SECURITY [facility] - POINT OF [place] RE ORDERABLES Care Teams Material Dispatcher Relationship Specialty Start Date End Date Prashant Ty MD [address] [place] [address] DR Rhonda REEDER [address] [place] [address] PCP - General Internal Medicine 08/12/17
--- OUTSIDE RECORDS SUMMARY | 2024-11-18 18:10 | XMS_ITS | Referral Summary ---
Author Organization [facility] [employer] Address [address] [place] [address] Care Team Providers Care Aerospace Products Sales Engineer Name Role Phone Prashant Ty MD Primary Care Provider [phone] Source Comments [facility],non-owned Affiliates and Associated Physician Practices is amultiple site organization consisting of ambulatory clinics and hospital sitesin [place], [place], [place] and [place]. This disclosure is being madepursuant to the Care Everywhere program and may not contain all information available regarding this patient. Last updated 18.[facility] Allergies No known active allergies Medications * Be aware that medications may not be up to date on this document. Alwaysverify current medications with the patient. Medication Sig Dispensed Refills Start Date End Date Status DILTIAZEM HCL PO Active ATORVASTATIN CALCIUM PO A ctive Social History Tobacco Use Types Packs/Day Years [...] Mass Index 24.63 12/20/2017 9:51 AM CDT Plan of Treatment Not on file Care Teams Aerospace Products Sales Engineer Relationship Specialty Start Date End Date Prashant Ty MD [address] [place] [address] DR [address] [address] PCP - General Internal Medicine 08/12/17
--- OUTSIDE RECORDS SUMMARY | 2024-11-18 18:10 | XMS_ITS | Clinical Summary ---
Author Organization [facility] [employer] Address [address] [place] [address] Care Team Providers Care Agricultural Technical Officer Name Role Phone Prashant Ty MD Primary Care Provider [phone] Source Comments [facility] [employer],non-owned Affiliates and Associated Physician Practices is amultiple site organization consisting of ambulatory clinics and hospital sitesin [place], [place], [place] and [place]. This disclosure is being madepursuant to the Care Everywhere program and may not contain all information available regarding this patient. Last updated 18.[employer] Allergies No known active allergies Medications * [...] 12/20/2017 9:51 AM CDT Plan of Treatment Health Maintenance Due Date Last Done Comments BONE DENSITY TESTING 1950 COLOGUARD (AGES 45-75) - COL ON CA SCREENING 1950 COLON MONITORING 1950 COLONOSCOPY - COLON CA SCREENING 1950 CT COLONOGRAPHY - COLON CA SCREENING 1950 Colorectal Cancer Screening 1950 FIT - COLON CA SCREENING 1950 FLEX SIG - COLON CA SCREENING 1950 MAMMOGRAM 1950 HEPATITIS C SCREENING 10/18/1967 DTAP/TDAP/TD VACCINES (1 - Tdap) 1968 PNEUMOCOCCAL VACCINE 50+ (1 of 1 - PCV) 1999 ZOSTER VACCINE (1 of 2) 1999 COVID-19 VACCINE ( - 2023-2 5 season) 2024 INFLUENZA VACCINE (#1) 2024 DEPRESSION SCREENING 09/26/2024 MEDICARE AWV CALENDAR YEAR 2024 Respiratory Syncytial Virus (RSV) Vaccine Pt: or over 60 yrs (1 - 1-dose 75+ series) 2024 HEPATITIS B VACCINE Aged Out No longe r eligible based on patient's age to complete this topic HIB VACCINE Aged Out No longer eligi ble based on patient's age to complete this topic HPV VACCINE Aged Out No longer eligi ble based on patient's age to complete this topic MENINGOCOCCAL (Group B) VACCINE Aged Out No longer eligible based on patient's age to complete this topic MENINGOCOCCAL VACCINE Aged Out No mayra germaine eligible based on patient's age to complete this topic Care Teams Agricultural Technical Officer Relationship Specialty Start Date End Date Prashant Ty MD [address] [place] [address] DR [address] [place] [address] PCP - General Internal Medicine 08/12/17
--- OUTSIDE RECORDS SUMMARY | 2024-11-18 18:10 | XMS_ITS | Continuity of Care Document ---
Author Organization [facility] Address [address] [facility] [address] [place] [address] Phone Care Team Providers Care Test Center Administrator Name Role Phone Moise PT,MPT,ATC, Camilo Unavailable Unavai lable Procedures Procedure Date Therapeutic Activities Neuromuscular Re-Ed Doc neg elder mal no plan PRES/ABSN URINE INCON ASSESS PT Evaluation Moderate Complexity Therapeutic Activities Neuromuscular Re-Ed Advance Directives Directive Yes / No Effective Date File Name No Information Encounters Encounter Description Practice Location Reason(s) For Visit Diagnoses Date Provider Providers Copied on Encounter [facility], [address] [facility] [address], [place], [place], [id number], tel:[phone] [place] No Information 5 Moise Sifuentes [place], [place], [place]. Referring Provider: [address], [place], [address]. tel:[phone] [facility] [address], [place], [place], [address], tel:[phone] [place] No Information 5 Moise Sifuentes [place], [place]. Referring Provider: [address], [place], [address]. tel:[phone] Family History Family Member Type Diagnosis Age At Onset No Information Payers Payer name Insurance type Covered green party ID Authoriza tion(s) [employer]na Medicare Replacement CI [id number] Social History Type Description Quantity Date Captured [...]
[2024-11-18 18:17] VITALS: BP 159/86; PULSE 75; RESP 18; TEMP 36.7; O2SAT 100
[2024-11-18 18:35] LABS: Basophils Absolute Auto 0.1 K/mm3 (0.0-0.1); Basophils Percent Auto 1.1 % (0.2-1.2); Eosinophils Absolute Auto 0.1 K/mm3 (0-0.3); Eosinophils Percent Auto 2.6 % (0-4.4); Hematocrit 41.6 % (37.0-47.0); Hemoglobin 13.3 g/dL (12.0-15.0); Immature Granulocyte Absolute 0.01 K/mm3 (0.00-0.031); Immature Granulocyte Percent A 0.2 % (0-0.5); Lymphocytes Percent Auto 43.8 % (18.3-44.2); Mean Corpuscular Hemoglobin 29.7 pg (26-34); Mean Corpuscular Volume 92.9 fl (80-100); Mean Platelet Volume 9.9 fl (7.4-10.4); Monocytes Absolute Auto 0.6 K/mm3 (0.1-0.6); Monocytes Percent Auto 12.5 % (2.6-8.5); Neutrophils Absolute Auto 1.8 K/mm3 (1.3-6.7); Neutrophils Percent Auto 39.8 % (45.5-73.1); Platelet Count Result 223 k/mm3 (150-375); Red Blood Count 4.48 M/mm3 (4.2-5.4); Red Cell Distribution Width 15.2 % (11.5-14.5); White Blood Count 4.6 K/mm3 (4.5-10.0)
[2024-11-18 18:47] LABS: Potassium 3.8 mmol/L (3.4-5.0)
[2024-11-18 18:50] LABS: Alanine Aminotransferase 15 U/L (6-35); Albumin Level 4.3 g/dL (3.5-5.1); Alkaline Phosphatase 64 U/L (38-126); Anion Gap 11 mmol/L (4-12); Aspartate Amino Transferase 24 U/L (14-36); Bilirubin,Total 0.5 mg/dL (0.2-1.3); Blood Urea Nitrogen 19 mg/dL (7-17); Calcium 9.4 mg/dL (8.4-10.2); Carbon Dioxide 22 mmol/L (22-30); Chloride 110 mmol/L (98-107); Estimated CRCL calculation 47 ml/min; Estimated Glomerular Filt Rate > 60; Glucose 90 mg/dL (65-110); Lipase 55 U/L (23-300); Sodium 143 mmol/L (137-145)
[2024-11-18 18:59] LABS: INR 1.2; Partial Thromboplastin Time 28.6 Seconds (22.3-36.8); Prothrombin Time 15.4 Seconds (11.1-14.7); Troponin I < 0.012 ng/mL (0.000-0.034)
[2024-11-19 00:25] VITALS: BP 158/94; PULSE 75; RESP 18; O2SAT 100
[2024-11-19 02:53] VITALS: PULSE 75
[2024-11-19 02:54] VITALS: O2SAT 100
[2024-11-19 02:55] VITALS: BP 182/93; PULSE 75; RESP 16; TEMP 36.4; O2SAT 100
--- OUTSIDE RECORDS SUMMARY | 2024-11-19 03:11 | XMS_ITS | Referral Summary ---
Author Organization [facility] [employer] Address [address] [facility] [place] [address] Care Team Providers Care Histopathologist Name Role Phone Prashant Ty MD Primary Care Provider [phone] Source Comments [facility] [employer],non-owned Affiliates and Associated Physician Practices is amultiple site organization consisting of ambulatory clinics and hospital sitesin [place] and [place]. This disclosure is being madepursuant to the Care Everywhere program and may not contain all information available regarding this patient. Last updated 18.[facility] [employer] Allergies No known active allergies Medications * [...] of Treatment Not on file Care Teams Histopathologist Relationship Specialty Start Date End Date Prashant Ty MD [address] [place] [address] DR [address] [address] PCP - General Internal Medicine 08/12/17
--- OUTSIDE RECORDS SUMMARY | 2024-11-19 03:11 | XMS_ITS | Encounter Summary ---
Author Organization [id number] Address [address] [place] [address] Phone Care Team Providers Care Electronics Worker Name Role Phone Prashant Ty MD Primary Care Provider [phone] Huy Stark MD PhD Unavailable + Shakila Meléndez MD Unavailable [phone] Velma Alberts Unavailable Unavailable Angelique Foster MD Unavailable Frannie Marroquin MD Unavailable [phone] Maria R Vee MD Unavailable [phone] Cecilia Chavez MD Unavailable [phone] Encounter Details Date Type Department Care Team (Late st Contact Info) Description 10/24/2017 Orders Only [facility] ProviderJanina MD [address] [place] [address] Social History Tobacco Use Types Packs/Day Years Used Date Smoking Tobacco: Never Comments Unknown Sex and Gender Information Value Date Recorded Sex Assigned at Not on file Legal Sex Female 3:42 AM [employer] Gender Identity Not on file Sexual Orientation Not on file documented as of this encounter Plan of Treatment Scheduled Procedures Name Priority Associated Diagnoses Date/Ti me COLONOSCOPY Rectal bleeding documented as of this encounter Procedures Procedure Name Priority Date/Time Associated Diagnosis Comments DISCHARGE LABORATORY CUMULATIVE REPORT 10/24/2017 12:00 AM [employer]ER documented in this encounter Results * DISCHARGE LABORATORY CUMULATIVE REPORT (10/24/2017 12:00 AM CUSHION FILLER) Narrative 10/24/2017 12:00 AM CUSHION F[employer]ER Ordered by an unspecified provider. us Historical Provider LAB BLOOD ORDERABLES Kitty l Result documented in this encounter Visit Diagnoses Not on filedocumented in this encounter Additional Health Concerns Infection Onset Date Last Indicated Resolved Time COVID: Suspected 06/14/2023 06/14/2023 06/14/2023 12:48 PM CDT documented as of this encounter Care Teams Electronics Worker Relationship Specialty Start Date End Date Prashant Ty MD [address] [place], [place] [address]RONI REEDER [address] [place] [id number] PCP - General 05/19/17 Huy Stark MD PhD [address] [place], [place] [address]RONI REEDER [address] [place] [id number] Surgeon Ophthalmology 08/07/18 Shakila Meléndez MD [address] [place], [place] [address]RONI REEDER [address] [place] [id number] Medical Oncologist/Hematologis t Medical Oncology 08/07/18 Velma Alberts [address] [place], [place] [address]RONI REEDER [address] [place] [id number] Referring Physician Dermatology 08/07/18 08/08/19 Angelique Foster MD [address] [place], [place] [address]RONI REEDER [address] [place] [id number] Referring Physician Obstetrics and Gynecology 08/08/18 08/12/21 Frannie Marroquin MD [address] [place] [address] Consulting Physician Dermatology 08/09/19 Maria R Vee MD [address] [facility] [id number] [place] [address] [facility] Obstetrics [facility] Gynecology 08/13/21 Cecilia Chavez MD [address] [place] [id number] Consulting Physician Bariatrics 08/01/24 documented as of this encounter
--- OUTSIDE RECORDS SUMMARY | 2024-11-19 03:11 | XMS_ITS | Clinical Summary ---
Author Organization [facility] Address [address] [place] [address] Care Team Providers Care Sheep Sticker Name Role Phone Prashant Ty MD Primary Care Provider [phone] Huy Stark MD PhD Unavailable + Shakila Meléndez MD Unavailable [phone] Frannie Marroquin MD Unavailable Maria R Vee MD Unavailable Cecilia Chavez MD Unavailable [phone] Allergies Active Allergy Reactions Criticality Noted [...] 2023 Assessment & Plan (08/27/2024 10:04 AM STATEMENT CLERKS MANAGER): She hs fluctuating pain in both uppper and lower back with known DDD in both locations. Benign exam. Advised OTC analgesics PRN. Refer to PT. Dry eye syndrome of both eyes 04/12/2024 Assessment & Plan (10/11/2024 3:23 PM STATEMENT CLERKS MANAGER): Pfats TID+ Assessment & Plan (04/12/2024 11:17 AM CDT): Discontinue Restasis Rec pfats TID+ OU Lumbar degenerative disc disease 08/23/2023 Assessment & Plan (08/27/2024 10:04 AM STATEMENT CLERKS MANAGER): She hs fluctuating pain in both uppper and lower back with known DDD in both locations. Benign exam. Advised OTC analgesics PRN. Refer to PT Assessment & Plan (08/23/2023 10:08 AM STATEMENT CLERKS MANAGER): Chronic. Intermittent. Benign exam. Check Xrays. Continue OTC analgesics PRN. Advised HEP. Iron deficiency anemia 01/05/2023 Assessment & Plan (08/27/2024 9:57 AM STATEMENT CLERKS MANAGER): Recently recurrent. She begins a series of 3 injectafer infusions next week. Assessment & Plan (08/01/2024 11:39 AM STATEMENT CLERKS MANAGER): Resolved when last checked. Previously, she has [...] again. Assessment & Plan (08/23/2023 10:14 AM STATEMENT CLERKS MANAGER): Resolved when last checked. Now with mild recurrent anemia. Recheck labs. She is scheduled to see Dr. Meléndez in early 08/2023. Status post LASIK surgery of both eyes 3 History of adenomatous polyp of colon 08/16/2022 Assessment & Plan (08/27/2024 9:54 AM STATEMENT CLERKS MANAGER): Up to date on colonoscopy Assessment & Plan (08/23/2023 10:00 AM STATEMENT CLERKS MANAGER): Up to date on colonoscopy Assessment & Plan (08/16/2022 1:29 PM STATEMENT CLERKS MANAGER): Up to date on colonoscopy Floppy eyelid [...] atrophy Assessment & Plan (10/25/2022 2:20 PM STATEMENT CLERKS MANAGER): BCVA 20/90, variable looking through past viists. Stable retinal thinning and superior small schisis cavity. No subjective changes. No choroidal neovascular membrane (CNVM) on OCT. Copying Dr. Stark. Assessment & Plan (10/13/2021 9:26 AM STATEMENT CLERKS MANAGER): Status post PDT in 2003 OD. OCT [...] 01/09/2019 Assessment & Plan (10/11/2024 3:24 PM STATEMENT CLERKS MANAGER): RTC with any acute vision changes Assessment & Plan (04/12/2024 11:16 AM CDT): Cont with current Rx RTC immediately with any acute vision changes, fl/floaters Assessment & Plan (10/13/2023 10:38 AM STATEMENT CLERKS MANAGER): No e/o choroidal neovascular membrane (CNVM). RTC [...] 05/11/2016 Assessment & Plan (08/27/2024 9:55 AM STATEMENT CLERKS MANAGER): RAFA. Benign exam. Followed by [facility]. Assessment & Plan (08/23/2023 10:15 AM STATEMENT CLERKS MANAGER): RAFA. Benign exam. She is scheduled to see Dr. Meléndez next month Assessment & Plan (08/16/2022 1:47 PM STATEMENT CLERKS MANAGER): RAFA. Benign exam. Released from Oncology follow up. 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 Prior followed by Dr. Meléndez- [facility] at upcoming OV for surveillance Assessment & Plan (08/13/2021 10:02 AM STATEMENT CLERKS MANAGER): RAFA. She remains in remission. Followed by Dr. Meléndez Assessment & Plan (08/12/2020 10:05 AM STATEMENT CLERKS MANAGER): RAFA. She remains in remission. Followed by Dr. Meléndez Assessment & Plan (08/09/2019 10:04 AM STATEMENT CLERKS MANAGER): RAFA. Followed by Dr. Meléndez Assessment & Plan (08/08/2018 10:06 AM STATEMENT CLERKS MANAGER): She remains in remission. Followed by Dr. Meléndez. Osteoarthritis of right shoulder 07/30/2015 Insomnia 02/20/2013 Assessment & Plan (08/23/2023 10:10 AM STATEMENT CLERKS MANAGER): Intermittent. She takes the Ambien 5 mg about twice weekly. No evidence of abuse. Assessment & Plan (08/16/2022 1:33 PM STATEMENT CLERKS MANAGER): Intermittent. She takes the Ambien 5 mg about twice weekly. Assessment & Plan (03/31/2022 9:27 AM CDT): Intermittent. She takes the Ambien 5 mg 2-3x/week Referral to sleep medicine to discuss concerns of uncontrolled HTN, poss JOHNY & insomnia eval Assessment & Plan (12/30/2021 9:41 AM CDT): Intermittent. She takes the Ambien 5 mgg about twice weekly. Assessment & Plan (08/12/2020 10:04 AM STATEMENT CLERKS MANAGER): Intermittent. Improving. She now only takes Ambien when travelling and sleeping in a hotel. Assessment & Plan (08/09/2019 10:04 AM STATEMENT CLERKS MANAGER): Infrequent. She only take Zolpidem when she travels. Assessment & Plan (08/08/2018 10:07 AM STATEMENT CLERKS MANAGER): Infrequent. She rarely uses zolpidem. Osteopenia 11/19/2011 Overview (09/22/2023): Her FRAX adjusted for TBS is 3.6% at hip 08/2023 Assessment & Plan (08/27/2024 10:03 AM STATEMENT CLERKS MANAGER): Followed by [facility]. Assessment & Plan (09/22/2023 2:07 PM STATEMENT CLERKS MANAGER): We will start ALN and plan a [...] . Assessment & Plan (08/23/2023 10:06 AM STATEMENT CLERKS MANAGER): Up to date on DEXA. Counseled on regular exercise. She is scheduled to see [facility] next month. Assessment & Plan (08/13/2021 9:44 AM STATEMENT CLERKS MANAGER): Up to date on DEXA Hay fever 03/18/2011 Assessment & Plan (08/27/2024 10:01 AM STATEMENT CLERKS MANAGER): Her PND is likely due to this. I recommend OTC medication, including antihistamines, flonase, mucinex PRN. Hyperlipidemia 03/18/2011 Assessment & Plan (08/27/2024 9:53 AM STATEMENT CLERKS MANAGER): I discussed ASCVD risk. I spent 15 [...] regimen. Assessment & Plan (08/23/2023 10:01 AM STATEMENT CLERKS MANAGER): I discussed ASCVD risk. I spent 15 [...] regimen. Assessment & Plan (08/16/2022 1:30 PM STATEMENT CLERKS MANAGER): I discussed ASCVD risk. I spent 15 [...] regimen. Assessment & Plan (08/13/2021 9:45 AM STATEMENT CLERKS MANAGER): I spent 15 minutes counseling her on [...] regimen. Assessment & Plan (08/12/2020 10:04 AM STATEMENT CLERKS MANAGER): I spent 15 minutes counseling her on [...] regimen. Assessment & Plan (08/09/2019 10:03 AM STATEMENT CLERKS MANAGER): I spent 15 minutes counseling her on [...] regimen Assessment & Plan (08/08/2018 10:07 AM STATEMENT CLERKS MANAGER): I spent 15 minutes counseling her on [...] 03/18/2011 Assessment & Plan (08/27/2024 9:53 AM STATEMENT CLERKS MANAGER): Hypertension is stable Continue current treatment regimen. Regular aerobic exercise. Continue current medications. Blood pressure will be reassessed at the next regular appointment. Assessment & Plan (02/06/2024 9:48 AM CDT): Hypertension is stable Continue current treatment regimen. Regular aerobic exercise. Continue current medications. Blood pressure will be reassessed at the next regular appointment. Assessment & Plan (08/23/2023 10:10 AM STATEMENT CLERKS MANAGER): Hypertension is controlled on home monitoring, although mildly high here today. Continue current treatment regimen. Regular aerobic exercise. Continue current medications. Ambulatory blood pressure monitoring. Blood pressure will be reassessed at the next regular appointment. Assessment & Plan (11/02/2022 12:22 PM STATEMENT CLERKS MANAGER): Hypertension is improving with treatment Continue current treatment regimen. Regular aerobic exercise. Continue current medications. Blood pressure will be reassessed at the next regular appointment. Assessment & Plan (08/16/2022 1:41 PM STATEMENT CLERKS MANAGER): Hypertension is uncontrolled. Continue current treatment regimen. [...] olmesartan Assessment & Plan (11/17/2021 9:45 AM STATEMENT CLERKS MANAGER): HTN improving on home montoring, but still high here. I suspect reactive HTN. We discussed options. Continue current reigmen and home monitoring. Recheck in about 8 weeks; she will bring her cuff to compare. Assessment & Plan (08/13/2021 10:09 AM STATEMENT CLERKS MANAGER): Hypertension is worsening Dietary sodium restriction. Regular aerobic exercise. Medication changes per orders. Blood pressure will be reassessed in 3 months. Add ARB. Assessment & Plan (10/09/2020 11:02 AM STATEMENT CLERKS MANAGER): Hypertension is stable Continue current treatment regimen. Regular aerobic exercise. Continue current medications. Blood pressure will be reassessed at the next regular appointment. Assessment & Plan (08/12/2020 10:04 AM STATEMENT CLERKS MANAGER): Hypertension is stable Continue current treatment regimen. Regular aerobic exercise. Continue current medications. Ambulatory blood pressure monitoring. Blood pressure will be reassessed at the next regular appointment. Assessment & Plan (08/09/2019 10:03 AM STATEMENT CLERKS MANAGER): Hypertension is controlled Continue current treatment regimen. Regular aerobic exercise. Continue current medications. Blood pressure will be reassessed at the next regular appointment. Assessment & Plan (08/08/2018 10:07 AM STATEMENT CLERKS MANAGER): Hypertension is controlled.. Continue current treatment regimen. Regular aerobic exercise. Continue current medications. Ambulatory blood pressure monitoring. Blood pressure will be reassessed at the next regular appointment. Macular degeneration 03/18/2011 Combined forms of age-related cataract of both e yes Overview (01/20/2021): Age-related nuclear cataract, bilateral - (Added by TW Conv) Assessment & Plan (10/11/2024 3:24 PM STATEMENT CLERKS MANAGER): Not yet v/s left eye (OS) - monitor/defer cataract extraction (CE) until s/sx indicate Assessment & Plan (04/12/2024 11:15 AM CDT): Best-corrected visual acuity (BVA) stable, monitor Assessment & Plan (10/13/2023 10:38 AM STATEMENT CLERKS MANAGER): Tr central posterior subcapsular cataract (PSC) both eyes (OU), visually functioning adequately, monitor Assessment & Plan (05/31/2023 11:11 AM CDT): Discussed cataract and continued follow up with Dr Juárez Assessment & Plan (10/13/2021 9:26 AM STATEMENT CLERKS MANAGER): Defer cataract surgery until signs and symptoms indicate Resolved Problems Problem Noted Date Diagnosed Date Resolved Date Vitreous syneresis of both eyes 01/09/2019 08/08/2020 Thoracic radiculitis 12/14/2016 018 Supraventricular tachycardia 03/18/2015 08/08/2018 Encounters Date Type Department Care Team Description 10/24/2024 9:35 AM STATEMENT CLERKS MANAGER - 10/24/2024 11:59 PM STATEMENT CLERKS MANAGER Hospital Encounter [facility] [address] [facility] [address] [place] [address] Encounter for screening mammogram for malignant neoplasm of breast Discharge Disposition: Discharge to home or self care 10/16/2024 Orders Only [facility] [address] [place] [address] [address] [place] [phone] Tracy Unger RN 10/11/2024 10:30 AM STATEMENT CLERKS MANAGER Office Visit 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 Ophthalmology [address] [facility] Outpatient [facility] [address] [place] [address] 09/28/2024 6:00 PM STATEMENT CLERKS MANAGER Office Visit [facility] at [address] [phone] Miguelina Cardona, [place] Right acute serous otitis media, recurrence not specified (Primary Dx) 09/21/2024 9:00 AM STATEMENT CLERKS MANAGER Infusion [facility] [facility] [address] [place] [phone] Iron deficiency anemia, unspecified iron deficiency anemia type (Primary Dx) 09/13/2024 9:00 AM STATEMENT CLERKS MANAGER Infusion [facility] [address] [place] [phone] Iron deficiency anemia, unspecified iron deficiency anemia type (Primary Dx); Fatigue, unspecified type 09/07/2024 9:00 AM STATEMENT CLERKS MANAGER Infusion [facility] [address] [facility] [address] [place] [address] Iron deficiency anemia, unspecified iron deficiency anemia type (Primary Dx) 08/29/2024 11:00 AM STATEMENT CLERKS MANAGER Office Visit [facility] Oncology [address] [facility] Floor 6 [place] [address] Shakila Meléndez MD History of B-cell lymphoma (Primary Dx) 08/29/2024 10:00 AM STATEMENT CLERKS MANAGER Lab [facility] [place] - [facility] Collection [address] [facility] Floor 6 [place] [address] History of B-cell lymphoma 08/27/2024 10:00 AM STATEMENT CLERKS MANAGER Office Visit [address] [place] [phone] Prashant Ty MD Medicare annual wellness visit, [...] on file Legal Sex Female 3:42 AM STATEMENT CLERKS MANAGER Gender Identity Not on file Sexual [...] Comments Blood Pressure 139/83 09/28/2024 6:00 PM STATEMENT CLERKS MANAGER Pulse 81 09/28/2024 6:00 PM STATEMENT CLERKS MANAGER Temperature 36.7 C (98 F) 09/28/2024 6:00 PM STATEMENT CLERKS MANAGER Respiratory Rate 20 09/28/2024 6:00 PM STATEMENT CLERKS MANAGER Oxygen Saturation 98% 09/28/2024 6:00 PM STATEMENT CLERKS MANAGER Inhaled Oxygen Concentration - - Weight 61.2 kg (135 lb) 09/28/2024 6:00 PM STATEMENT CLERKS MANAGER Height 162.6 cm (5' 4 ) 09/28/2024 6:00 PM STATEMENT CLERKS MANAGER Body Mass Index 23.17 09/28/2024 6:00 PM STATEMENT CLERKS MANAGER Plan of Treatment Scheduled Procedures Name Priority [...] Read Routine (OP Routine) 10/24/2024 9:49 AM STATEMENT CLERKS MANAGER Encounter for screening mammogram for malignant neoplasm of breast OCT, RETINA - OU - BOTH EYES Routine 10/11/2024 10:19 AM STATEMENT CLERKS MANAGER Macular degeneration of both eyes, unspecified type EGFR Routine 08/29/2024 10:13 AM STATEMENT CLERKS MANAGER History of B-cell lymphoma DIFFERENTIAL AUTO Routine 08/29/2024 10: 13 AM STATEMENT CLERKS MANAGER History of B-cell lymphoma CBC WITH AUTO DIFFERENTIAL Routine 08/29/2024 10:13 AM STATEMENT CLERKS MANAGER History of B-cell lymphoma COMPREHENSIVE METABOLIC PANEL Routine 08/29/2024 10:13 AM STATEMENT CLERKS MANAGER History of B-cell lymphoma LACTATE DEHYDROGENASE Routine 08/29/2024 10:13 AM STATEMENT CLERKS MANAGER History of B-cell lymphoma DEXA TBS AXIAL SKELETON BONE DENSITY 1 OR MORE SITES Schedule Routine, Read Routine (OP Routine) 09/22/2023 11:16 AM STATEMENT CLERKS MANAGER Osteoporosis, unspecified osteoporosis type, unspecified pathological fracture presence STOOL DNA COLOGUARD Routine 09/27/2022 9:00 PM STATEMENT CLERKS MANAGER Colon cancer screening COLONOSCOPY 03/11/2022 8:49 AM CDT HEPATITIS C ANTIBODY Routine 03/27/2019 9:57 AM CDT Need for hepatitis C screening test from Last 3 Months or Most Recently Relevant to Health Maintenance Results * Screening Mammogram Bilateral W Yogesh (10/24/2024 9:49 AM STATEMENT CLERKS MANAGER) Anatomical Region Laterality Modality Breast Bilateral Mammography Narrative 10/24/2024 2:58 PM STATEMENT CLERKS MANAGER Mammogram Technique: Bilateral Digital Breast Tomosynthesis, Bilateral C-view 2D Screening mammogram. Views obtained: bilateral craniocaudal and bilateral mediolateral oblique. Computer Aided Detection was performed. Mammogram Findings: The present examination has been compared to prior imaging studies performed at [facility] on 10/20/2020, 10/06/2022 and 10/20/2023. There [...] compared to prior imaging studies performed at [facility] on 10/20/2020, 10/06/2022 and 10/20/2023. There are scattered areas of fibroglandular density. There is no suspicious abnormality in either breast. Impression: There is no mammographic evidence of malignancy. Annual screening mammography is recommended. OVERALL FINAL ASSESSMENT: BI-RADS CATEGORY 1: Negative. us Prashant Ty MD IMG MAMMO PROCEDURES Kitty l Result * OCT, Retina - OU - Both Eyes (10/11/2024 10:19 AM STATEMENT CLERKS MANAGER) Central Macular Thickness OS 259 mircometers CONTINUUM Central Macular Thickness OD 249 micrometers CONTINUUM Anatomical Region Laterality Modality Head Other Narrative 10/11/2024 3:24 PM STATEMENT CLERKS MANAGER Right Eye Quality was good. Progression has [...] Res ult * eGFR (08/29/2024 10:13 AM STATEMENT CLERKS MANAGER) eGFR 74 >=60 mL/min/1. 73 m2 Comment: [...] reviewed 2021. Blood 08/29/2024 10:1 3 AM STATEMENT CLERKS MANAGER 08/29/2024 10:33 AM STATEMENT CLERKS MANAGER us Lynnette Figueroa STONE MILL OPERATOR LAB BLOOD ORDERABLES Final Result [facility] Department [place] [address] * Differential, auto (08/29/2024 10:13 AM STATEMENT CLERKS MANAGER) Neutrophil abs 2.4 1.5 - 6.5 K/cumm Comment:Testing performed by : [facility], [address] [place] [address] Lymphocyte abs 1.2 0.8 - 3.3 K/cumm [facility] Comment:Testing performed by : [facility], [address] [place] [address] Monocyte abs 0.6 0.2 - 0.8 K/cumm [facility] Comment:Testing performed by : [facility], [address] [place], [place] [phone] Eosinophil abs 0.3 0.0 - 0.5 K/cumm [facility] Comment:Testing performed by : [facility], [address] [place] [phone] Basophil abs 0.1 0.0 - 0.1 K/cumm [facility] Comment:Testing performed by : [facility], [address] [place] [phone] Neutrophil pct 54.0 % [facility] Comment: Interpretive Data Percent cell count reference ranges are not reported, since discordance with absolute values may lead to misinterpretation of CBC data. Current Interpretive Data was last revised on 2018. Testing performed by: [facility], [address] [place] [phone] Lymphocyte pct 26.4 % [facility] Comment: Interpretive Data Percent cell count reference ranges are not reported, since discordance with absolute values may lead to misinterpretation of CBC data. Current Interpretive Data was last revised on 2018. Testing performed by: [facility], [address] [place] [phone] Monocyte pct 12.5 % [facility] Comment: Interpretive Data Percent cell count reference ranges are not reported, since discordance with absolute values may lead to misinterpretation of CBC data. Current Interpretive Data was last revised on 2018. Testing performed by: [facility], [address] [place] [phone] Eosinophil pct 5.8 % [facility] Comment: Interpretive Data Percent cell count reference ranges are not reported, since discordance with absolute values may lead to misinterpretation of CBC data. Current Interpretive Data was last revised on 2018. Testing performed by: [facility], [address] [place] [phone] Basophil pct 1.3 % [facility] Comment: Interpretive Data Percent cell count reference ranges are not reported, since discordance with absolute values may lead to misinterpretation of CBC data. Current Interpretive Data was last revised on 2018. Testing performed by: [facility], [address] [place] [phone] Blood 08/29/2024 10:1 3 AM STATEMENT CLERKS MANAGER 08/29/2024 10:30 AM STATEMENT CLERKS MANAGER us Lynnette Figueroa STONE MILL OPERATOR LAB BLOOD ORDERABLES Final Result Performing Organization Address City/State/[facility] Co de Phone Number [facility] [place] [address] * (ABNORMAL) CBC with auto differential (08/29/2024 10:13 AM STATEMENT CLERKS MANAGER) WBC 4.5 3.8 - 9.9 K/cumm Comment:Testing performed by : [facility], [address] [place] [phone] Hgb 10.5(L) 11.9 - 15.5 g/dL [facility] Comment:Testing performed by : [facility], [address] [place] [phone] Hct 33.7(L) 35.6 - 45.5 % [facility] Comment:Testing performed by : [facility], [address] [place] [phone] Plt 330 150 - 400 K/cumm [facility] Comment:Testing performed by : [facility], [address] [place] [phone] MPV 8.0 6.8 - 10.4 fL [facility] Comment:Testing performed by : [facility], [address] [place], [place] [phone] RBC 3.71(L) 3.90 - 5.20 M/cumm [facility] Comment:Testing performed by : [facility], [address] [place], [place] [phone] MCV 90.9 81.3 - 96.4 fL [facility] Comment:Testing performed by : [facility], [address] [place], [place] [phone] MCH 28.2 27.1 - 33.3 pg [facility] Comment:Testing performed by : [facility], [address] [place], [place] [phone] MCHC 31.1(L) 32.3 - 35.7 g/dL [facility] Comment:Testing performed by : [facility], [address] [place] [address] RDW CV 14.9 11.1 - 14.9 % [facility] Comment:Testing performed by : [facility], [address] [place] [address] NRBC abs 0.00 0.00 - 0.01 K/cumm [facility] Comment:Testing performed by : [facility], [address] [place] [address] Blood 08/29/2024 10:1 3 AM STATEMENT CLERKS MANAGER 08/29/2024 10:30 AM STATEMENT CLERKS MANAGER Lynnette Figueroa STONE MILL OPERATOR LAB BLOOD ORDERABLES Final Result [facility] Department of Laboratories [place], [place] [id number] * Lactate dehydrogenase (LD) (08/29/2024 10:13 AM STATEMENT CLERKS MANAGER) Lactate dehydrogenase (LDH) 171 100 - 250 Units/L Blood 08/29/2024 10:1 3 AM STATEMENT CLERKS MANAGER 08/29/2024 10:33 AM STATEMENT CLERKS MANAGER Lynnette Figueroa NP LAB BLOOD ORDERABLES Final Result [facility] [place] [address] * (ABNORMAL) Comprehensive metabolic panel (08/29/2024 10:13 AM STATEMENT CLERKS MANAGER) Sodium 143 135 - 145 mmol/L Potassium, pl 4.1 3.3 - 4.9 mmol/L [facility] Chloride 112(H) 97 - 110 mmol/L [facility] CO2 28 22 - 32 mmol/L [facility] Anion gap 3 2 - 15 mmol/L [facility] BUN 13 6 - 25 mg/dL [facility] Creatinine 0.83 0.60 - 1.10 mg/dL [facility] Glucose 90 70 - 199 mg/dL [facility] Comment: Interpretive Data Fasting glucose >/= [...] 2022. Calcium 8.8 8.5 - 10.3 mg/dL [facility] Bilirubin, total 0.4 0.1 - 1.2 mg/dL [facility] Protein, pl 7.1 6.5 - 8.5 g/dL [facility] [facility] Albumin 3.7 3.5 - 5.0 g/dL [facility] Alk phos 53 40 - 130 Units/L [facility] ALT 7 7 - 45 Units/L [facility] AST 15 10 - 45 Units/L [facility] Blood 08/29/2024 10:1 3 AM STATEMENT CLERKS MANAGER 08/29/2024 10:33 AM STATEMENT CLERKS MANAGER Lynnette Figueroa NP LAB BLOOD ORDERABLES Final Result [facility] [place] [address] * Dexa TBS Axial Skeleton Bone Density 1 or more sites (09/22/2023 11:16 AM STATEMENT CLERKS MANAGER) Anatomical Region Laterality Modality Wrist, Body N/A Radiographic Meghan ging Narrative 09/22/2023 2:01 PM STATEMENT CLERKS MANAGER Patient Name: Jennie Weber Date of : 1950 Date of scan: 09/22/2023 Bone mineral density was performed on a HoloBlackberry Discovery Densitometer. Based on machine cross-calibration and [...] by the International Society of Clinical Densitometry. [id number] Charlie Napoles MD IM DXA PROCEDURES Final Resul t * Stool DNA - Cologuard (09/27/2022 9:00 PM STATEMENT CLERKS MANAGER) Pathologist [facility] Stool DNA - Cologuard Negative Negative [facility] (CLIA #:[id number]) Comment: NEGATIVE TEST RESULT. A negative Cologuard [...] Fairchild et al, N Engl J Med 2014;370(14):5879-6119) The normal value (reference range) for this assay is negative. COLOGUARD RE-SCREENING RECOMMENDATION: Periodic colorectal cancer screening is an important part of preventive healthcare for asymptomatic individuals at average risk for colorectal cancer. Following a negative Cologuard result, the [place] [employer] and U.S. Multi-Society Task Force screening guidelines recommend a Cologuard re-screening interval of 3 years. References: [place] [employer] Guideline for Colorectal Cancer Screening: https://www.cancer.org/cancer/bvccv-halpib-mtcrbo/jdinwdtbk-dkplgxiib-zrjdmds/ac s-rec ommendations.html.; Julian LEON, Steffanie MEMBRENO, Derrick GARZA, Colorectal Cancer Screening: Recommendations for Physicians and Patients from the U.S. Multi-Society Task Force on Colorectal Cancer Screening , Am J Gastroenterology 2017; 112:5178-2584. TEST DESCRIPTION: Composite algorithmic analysis of stool [...] (Gloria Quiles al, N Engl J Med 2014;370(14):9291-2493.) Cologuard may produce a false negative or false positive result (no colorectal cancer or precancerous polyp present at colonoscopy follow up). A negative Cologuard test result does not guarantee the absence of CRC or advanced adenoma (pre-cancer). The current Cologuard screening interval is every 3 years. ([place] [employer] and U.S. Multi-Society Task Force). Cologuard performance data in a 10,000 patient pivotal study using colonoscopy as the reference method can be accessed at the following location: www.exactlabs.com/results. Additional description of the Cologuard test process, warnings and precautions can be found at www.cologuard.com. Stool 09/27/2022 9:00 PM STATEMENT CLERKS MANAGER 09/29/2022 10:27 AM STATEMENT CLERKS MANAGER us Shakila Meléndez MD LAB BODY FLUIDS AND STOOLS ORDERABLES Final Result [employer] (CLIA #:[id number]) [address] [place] [address] * COLONOSCOPY (03/11/2022 8:49 AM CDT) Anatomical Region Laterality Modality Other Narrative Procedure Note Fredis Trinidad MD - 03/11/2022 8:49 AM CDT [facility] Patient Name: Jennie Weber Procedure Date: 03/11/2022 8:49 AM Date of : 1950 Admit Type: Outpatient Age: 71 Gender: Female Attending MD: Fredis Trinidad M.D. Room: [facility] ENDOSCOPY ROOM 8 Note Status: Finalized Procedure: Colonoscopy Indications: Hematochezia Referring MD: Prashant Ty M.D. Providers: Fredis D. Pound, M.D. Medicines: Monitored Anesthesia Care Complications: No [...] passed under direct vision.The CF HQ 190L [id number] endoscope was introducedthrough the anus and advanced to the cecum, identified by appendiceal orifice and ileocecal valve. The colonoscopy was performed without difficulty. The patient tolerated the procedure well. The qualityof the bowel preparation was good. The quality of the bowel preparation was evaluated using the BBPS([place] Bowel Preparation Scale) with scores of: RightColon [...] On: 03/11/2022 8:49 AM Recognized by the [place] [employer] for Gastrointestinal Endoscopy for promoting quality [...] a test for HCV RNA (test code 68315) is suggested. For additional information please refer to http://education.B[employer] Mobile.Hinacom/faq/MGO06y7 (This link is being provided for informational/ educational purposes only.) Blood specimen (specimen) 03/27/2019 9:57 AM CDT 03/27/2019 9:57 AM CDT Narrative [facility] - 03/28/2019 10:28 AM CDT FASTING:YES FASTING: YES Resulting Agency Comment Performing Organization Information: Site ID: [facility] Name: [facility] Address: [address] [place] [id number] Director: José Luis Lopez D.O., MPH us Prashant Ty MD LAB MICROBIOLOGY - GENERA L ORDERABLES Final Result [facility] Emanuel from Last 3 Months or Most Recently Relevant to Health Maintenance Insurance [facility] MEDICARE Advance Directives For more information, please contact: [phone] * Full Code (Latest Code Status on File) Date Activated Date Inactivated Comments 03/11/2022 8:27 AM 03/11/2022 2:04 PM Care Teams Sheep Sticker Relationship Specialty Start Date End Date Prashant Ty MD [facility] [address] RE[address]ER [address] [place] [id number] PCP - General 05/19/17 Huy Stark MD PhD [facility] [address] [place] [address] Surgeon Ophthalmology 08/07/18 Shakila Meléndez MD [address] [facility] [address] [address] [place] [address] Medical Oncologist/Hematologis t Medical Oncology 08/07/18 Frannie Marroquin MD [address] [facility] [address] [place] [address] Consulting Physician Dermatology 08/09/19 Maria R Vee MD [address] [facility] [id number] [place] [address] Director Music Obstetrics and Gynecology 08/13/21 Cecilia Chavez MD [address] [place] [address] Consulting Physician Bariatrics 08/01/24
--- OUTSIDE RECORDS SUMMARY | 2024-11-19 03:11 | XMS_ITS | Clinical Summary ---
Author Organization [facility] [employer] Address [address] [facility] [place] [address] Care Team Providers Care Pepper Picker Name Role Phone Prashant Ty MD Primary Care Provider [phone] Source Comments [facility],non-owned Affiliates and Associated Physician Practices is amultiple site organization consisting of ambulatory clinics and hospital sitesin [place], [place], [place] and [place]. This disclosure is being madepursuant to the Care Everywhere program and may not contain all information available regarding this patient. Last updated 18.[employer] Allergies No known active allergies Medications * [...] age to complete this topic Care Teams Pepper Picker Relationship Specialty Start Date End Date Prashant Ty MD [address] [place] [address] [address] [place] [address] PCP - General Internal Medicine 08/12/17
--- OUTSIDE RECORDS SUMMARY | 2024-11-19 03:11 | XMS_ITS | Patient Health Summary ---
Author Organization [facility] Address [address] [place] [address] Care Team Providers Care Meat Smoker Name Role Phone Prashant Ty MD Primary Care Provider [phone] Note from [facility],non-owned Affiliates and Associated Physician Practices is amultiple site organization consisting of ambulatory clinics and hospital sitesin [place], [place], [place] and [place]. This disclosure is being madepursuant to the Care Everywhere program and may not contain all information available regarding this patient. Last updated 18.[facility] [employer] Allergies No known active allergies Medications * [...] Strep A Internal Control Present Lot # [id number] Expiration Date 10/07/18 Throat ENTIRE THROAT (SURFACE REGION OF NECK) / Unknown 12/20/2017 Evelin Martines UTILIZATION MANAGER-USABILITY SPECIALIST LAB - POINT OF CA RE ORDERABLES Care Teams Meat Smoker Relationship Specialty Start Date End Date Prashant Ty MD [address] [place] [address] [address] Rhonda REEDER [address] [place] [id number] PCP - General Internal Medicine 08/12/17
--- OUTSIDE RECORDS SUMMARY | 2024-11-19 03:11 | XMS_ITS | Referral Summary ---
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 Name Role Phone Prashant Ty MD Primary Care Provider [phone] Huy Stark MD PhD Unavailable + Shakila Meléndez MD Unavailable Frannie Marroquin MD Unavailable Maria R Vee MD Unavailable Cecilia Chavez MD Unavailable [phone] Encounters Date Type Department Care Team Description 10/24/2024 9:35 AM VIDEO CLERK - 10/24/2024 11:59 PM VIDEO CLERK Hospital Encounter [facility] [address] [place] [address] Encounter for screening mammogram for malignant neoplasm of breast Discharge Disposition: Discharge to home or self care 10/16/2024 Orders Only [facility] [address] [place] [phone] Tracy Unger, RN 10/11/2024 10:30 AM VIDEO CLERK Office Visit [facility] Ophthalmology 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; Degenerative myopia of right eye, unspecified whether complication present; Dry eye syndrome of both eyes 10/11/2024 10:20 AM VIDEO CLERK Imaging Exam [facility] Ophthalmology [address] [facility] [address] [place] [address] 09/28/2024 6:00 PM VIDEO CLERK Office Visit [facility] at [address] [phone] Miguelina Cardona NP Right acute serous otitis media, recurrence not specified (Primary Dx) 09/21/2024 9:00 AM VIDEO CLERK Infusion [facility] [address] [place] [phone] Iron deficiency anemia, unspecified iron deficiency anemia type (Primary Dx) 09/13/2024 9:00 AM VIDEO CLERK Infusion [facility] [address] [place] [phone] Iron deficiency anemia, unspecified iron deficiency anemia type (Primary Dx); Fatigue, unspecified type 09/07/2024 9:00 AM VIDEO CLERK Infusion [facility] [address] [place] [phone] Iron deficiency anemia, unspecified iron deficiency anemia type (Primary Dx) 08/29/2024 11:00 AM VIDEO CLERK Office Visit [facility] Oncology [address] Floor 6 [place] [address] Shakila Meléndez MD History of B-cell lymphoma (Primary Dx) 08/29/2024 10:00 AM VIDEO CLERK Lab [facility] - Lab Collection [address] [facility] [address] [place] [address] History of B-cell lymphoma 08/27/2024 10:00 AM VIDEO CLERK Office Visit [address] [place] [phone] Prashant Ty MD Medicare annual wellness visit, [...] 2023 Assessment & Plan (08/27/2024 10:04 AM VIDEO CLERK): She hs fluctuating pain in both uppper and lower back with known DDD in both locations. Benign exam. Advised OTC analgesics PRN. Refer to PT. Dry eye syndrome of both eyes 04/12/2024 Assessment & Plan (10/11/2024 3:23 PM VIDEO CLERK): Pfats TID+ Assessment & Plan (04/12/2024 11:17 AM CDT): Discontinue Restasis Rec pfats TID+ OU Lumbar degenerative disc disease 08/23/2023 Assessment & Plan (08/27/2024 10:04 AM VIDEO CLERK): She hs fluctuating pain in both uppper and lower back with known DDD in both locations. Benign exam. Advised OTC analgesics PRN. Refer to PT Assessment & Plan (08/23/2023 10:08 AM VIDEO CLERK): Chronic. Intermittent. Benign exam. Check Xrays. Continue OTC analgesics PRN. Advised HEP. Iron deficiency anemia 01/05/2023 Assessment & Plan (08/27/2024 9:57 AM VIDEO CLERK): Recently recurrent. She begins a series of 3 injectafer infusions next week. Assessment & Plan (08/01/2024 11:39 AM VIDEO CLERK): Resolved when last checked. Previously, she has [...] again. Assessment & Plan (08/23/2023 10:14 AM VIDEO CLERK): Resolved when last checked. Now with mild recurrent anemia. Recheck labs. She is scheduled to see Dr. Meléndez in early 08/2023. Status post LASIK surgery of both eyes 3 History of adenomatous polyp of colon 08/16/2022 Assessment & Plan (08/27/2024 9:54 AM VIDEO CLERK): Up to date on colonoscopy Assessment & Plan (08/23/2023 10:00 AM VIDEO CLERK): Up to date on colonoscopy Assessment & Plan (08/16/2022 1:29 PM VIDEO CLERK): Up to date on colonoscopy Floppy eyelid [...] atrophy Assessment & Plan (10/25/2022 2:20 PM VIDEO CLERK): BCVA 20/90, variable looking through past viists. Stable retinal thinning and superior small schisis cavity. No subjective changes. No choroidal neovascular membrane (CNVM) on OCT. Copying Dr. Stark. Assessment & Plan (10/13/2021 9:26 AM VIDEO CLERK): Status post PDT in 2003 OD. OCT [...] 01/09/2019 Assessment & Plan (10/11/2024 3:24 PM VIDEO CLERK): RTC with any acute vision changes Assessment & Plan (04/12/2024 11:16 AM CDT): Cont with current Rx RTC immediately with any acute vision changes, fl/floaters Assessment & Plan (10/13/2023 10:38 AM VIDEO CLERK): No e/o choroidal neovascular membrane (CNVM). RTC [...] 05/11/2016 Assessment & Plan (08/27/2024 9:55 AM VIDEO CLERK): RAFA. [facility] exam[facility] Assessment & Plan (08/23/2023 10:15 AM VIDEO CLERK): RAFA. Benign exam. She is scheduled to see Dr. Meléndez next month Assessment & Plan (08/16/2022 1:47 PM VIDEO CLERK): RAFA. Benign exam. Released from Oncology follow up. 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 Prior followed by Dr. Meléndez- CBC at upcoming OV for surveillance Assessment & Plan (08/13/2021 10:02 AM VIDEO CLERK): RAFA. She remains in remission. Followed by Dr. Meléndez Assessment & Plan (08/12/2020 10:05 AM VIDEO CLERK): RAFA. She remains in remission. Followed by Dr. Meléndez Assessment & Plan (08/09/2019 10:04 AM VIDEO CLERK): RAFA. Followed by Dr. Meléndez Assessment & Plan (08/08/2018 10:06 AM VIDEO CLERK): She remains in remission. Followed by Dr. Meléndez. Osteoarthritis of right shoulder 07/30/2015 Insomnia 02/20/2013 Assessment & Plan (08/23/2023 10:10 AM VIDEO CLERK): Intermittent. She takes the Ambien 5 mg about twice weekly. No evidence of abuse. Assessment & Plan (08/16/2022 1:33 PM VIDEO CLERK): Intermittent. She takes the Ambien 5 mg about twice weekly. Assessment & Plan (03/31/2022 9:27 AM CDT): Intermittent. She takes the Ambien 5 mg 2-3x/week Referral to sleep medicine to discuss concerns of uncontrolled HTN, poss JOHNY & insomnia eval Assessment & Plan (12/30/2021 9:41 AM CDT): Intermittent. She takes the Ambien 5 mgg about twice weekly. Assessment & Plan (08/12/2020 10:04 AM VIDEO CLERK): Intermittent. Improving. She now only takes Ambien when travelling and sleeping in a hotel. Assessment & Plan (08/09/2019 10:04 AM VIDEO CLERK): Infrequent. She only take Zolpidem when she travels. Assessment & Plan (08/08/2018 10:07 AM VIDEO CLERK): Infrequent. She rarely uses zolpidem. Osteopenia 11/19/2011 Overview (09/22/2023): Her FRAX adjusted for TBS is 3.6% at hip 08/2023 Assessment & Plan (08/27/2024 10:03 AM VIDEO CLERK): Followed by [facility]. Assessment & Plan (09/22/2023 2:07 PM VIDEO CLERK): We will start ALN and plan a [...] . Assessment & Plan (08/23/2023 10:06 AM VIDEO CLERK): Up to date on DEXA. Counseled on regular exercise. She is scheduled to see [facility] next month. Assessment & Plan (08/13/2021 9:44 AM VIDEO CLERK): Up to date on DEXA Hay fever 03/18/2011 Assessment & Plan (08/27/2024 10:01 AM VIDEO CLERK): Her PND is likely due to this. I recommend OTC medication, including antihistamines, flonase, mucinex PRN. Hyperlipidemia 03/18/2011 Assessment & Plan (08/27/2024 9:53 AM VIDEO CLERK): I discussed ASCVD risk. I spent 15 [...] regimen. Assessment & Plan (08/23/2023 10:01 AM VIDEO CLERK): I discussed ASCVD risk. I spent 15 [...] regimen. Assessment & Plan (08/16/2022 1:30 PM VIDEO CLERK): I discussed ASCVD risk. I spent 15 [...] regimen. Assessment & Plan (08/13/2021 9:45 AM VIDEO CLERK): I spent 15 minutes counseling her on [...] regimen. Assessment & Plan (08/12/2020 10:04 AM VIDEO CLERK): I spent 15 minutes counseling her on [...] regimen. Assessment & Plan (08/09/2019 10:03 AM VIDEO CLERK): I spent 15 minutes counseling her on [...] regimen Assessment & Plan (08/08/2018 10:07 AM VIDEO CLERK): I spent 15 minutes counseling her on [...] 03/18/2011 Assessment & Plan (08/27/2024 9:53 AM VIDEO CLERK): Hypertension is stable Continue current treatment regimen. Regular aerobic exercise. Continue current medications. Blood pressure will be reassessed at the next regular appointment. Assessment & Plan (02/06/2024 9:48 AM CDT): Hypertension is stable Continue current treatment regimen. Regular aerobic exercise. Continue current medications. Blood pressure will be reassessed at the next regular appointment. Assessment & Plan (08/23/2023 10:10 AM VIDEO CLERK): Hypertension is controlled on home monitoring, although mildly high here today. Continue current treatment regimen. Regular aerobic exercise. Continue current medications. Ambulatory blood pressure monitoring. Blood pressure will be reassessed at the next regular appointment. Assessment & Plan (11/02/2022 12:22 PM VIDEO CLERK): Hypertension is improving with treatment Continue current treatment regimen. Regular aerobic exercise. Continue current medications. Blood pressure will be reassessed at the next regular appointment. Assessment & Plan (08/16/2022 1:41 PM VIDEO CLERK): Hypertension is uncontrolled. Continue current treatment regimen. [...] olmesartan Assessment & Plan (11/17/2021 9:45 AM VIDEO CLERK): HTN improving on home montoring, but still high here. I suspect reactive HTN. We discussed options. Continue current reigmen and home monitoring. Recheck in about 8 weeks; she will bring her cuff to compare. Assessment & Plan (08/13/2021 10:09 AM VIDEO CLERK): Hypertension is worsening Dietary sodium restriction. Regular aerobic exercise. Medication changes per orders. Blood pressure will be reassessed in 3 months. Add ARB. Assessment & Plan (10/09/2020 11:02 AM VIDEO CLERK): Hypertension is stable Continue current treatment regimen. Regular aerobic exercise. Continue current medications. Blood pressure will be reassessed at the next regular appointment. Assessment & Plan (08/12/2020 10:04 AM VIDEO CLERK): Hypertension is stable Continue current treatment regimen. Regular aerobic exercise. Continue current medications. Ambulatory blood pressure monitoring. Blood pressure will be reassessed at the next regular appointment. Assessment & Plan (08/09/2019 10:03 AM VIDEO CLERK): Hypertension is controlled Continue current treatment regimen. Regular aerobic exercise. Continue current medications. Blood pressure will be reassessed at the next regular appointment. Assessment & Plan (08/08/2018 10:07 AM VIDEO CLERK): Hypertension is controlled.. Continue current treatment regimen. Regular aerobic exercise. Continue current medications. Ambulatory blood pressure monitoring. Blood pressure will be reassessed at the next regular appointment. Macular degeneration 03/18/2011 Combined forms of age-related cataract of both e yes Overview (01/20/2021): Age-related nuclear cataract, bilateral - (Added by TW Conv) Assessment & Plan (10/11/2024 3:24 PM VIDEO CLERK): Not yet v/s left eye (OS) - monitor/defer cataract extraction (CE) until s/sx indicate Assessment & Plan (04/12/2024 11:15 AM CDT): Best-corrected visual acuity (BVA) stable, monitor Assessment & Plan (10/13/2023 10:38 AM VIDEO CLERK): Tr central posterior subcapsular cataract (PSC) both eyes (OU), visually functioning adequately, monitor Assessment & Plan (05/31/2023 11:11 AM CDT): Discussed cataract and continued follow up with Dr Juárez Assessment & Plan (10/13/2021 9:26 AM VIDEO CLERK): Defer cataract surgery until signs and symptoms [...] SARS-CoV-2 Monovalent Vaccination (12+ Yrs) PURPLE 06/25/2021,11/22/2020,10/30/2020 Lexy Sars-Cov-2 Bivalent V accination (12+ YRS) 07/04/2022 [...] on file Legal Sex Female 3:42 AM VIDEO CLERK Gender Identity Not on file Sexual Orientation Not on file Last Filed Vital Signs Vital Sign Reading Time Taken Comments Blood Pressure 139/83 09/28/2024 6:00 PM VIDEO CLERK Pulse 81 09/28/2024 6:00 PM VIDEO CLERK Temperature 36.7 C (98 F) 09/28/2024 6:00 PM VIDEO CLERK Respiratory Rate 20 09/28/2024 6:00 PM VIDEO CLERK Oxygen Saturation 98% 09/28/2024 6:00 PM VIDEO CLERK Inhaled Oxygen Concentration - - Weight 61.2 kg (135 lb) 09/28/2024 6:00 PM VIDEO CLERK Height 162.6 cm (5' 4 ) 09/28/2024 6:00 PM VIDEO CLERK Body Mass Index 23.17 09/28/2024 6:00 PM VIDEO CLERK Plan of Treatment Scheduled Procedures Name Priority Associated Diagnoses Date/Ti me COLONOSCOPY Rectal bleeding Procedures Procedure Name Priority Date/Time Associated Diagnosis Comments SCREENING MAMMOGRAM BILATERAL W YOGESH Schedule Routine, Read Routine (OP Routine) 10/24/2024 9:49 AM VIDEO CLERK Encounter for screening mammogram for malignant neoplasm of breast OCT, RETINA - OU - BOTH EYES Routine 10/11/2024 10:19 AM VIDEO CLERK Macular degeneration of both eyes, unspecified type EGFR Routine 08/29/2024 10:13 AM VIDEO CLERK History of B-cell lymphoma DIFFERENTIAL AUTO Routine 08/29/2024 10: 13 AM VIDEO CLERK History of B-cell lymphoma CBC WITH AUTO DIFFERENTIAL Routine 08/29/2024 10:13 AM VIDEO CLERK History of B-cell lymphoma COMPREHENSIVE METABOLIC PANEL Routine 08/29/2024 10:13 AM VIDEO CLERK History of B-cell lymphoma LACTATE DEHYDROGENASE Routine 08/29/2024 10:13 AM VIDEO CLERK History of B-cell lymphoma DEXA TBS AXIAL SKELETON BONE DENSITY 1 OR MORE SITES Schedule Routine, Read Routine (OP Routine) 09/22/2023 11:16 AM VIDEO CLERK Osteoporosis, unspecified osteoporosis type, unspecified pathological fracture presence STOOL DNA COLOGUARD Routine 09/27/2022 9:00 PM VIDEO CLERK Colon cancer screening COLONOSCOPY 03/11/2022 8:49 AM CDT HEPATITIS C ANTIBODY Routine 03/27/2019 9:57 AM CDT Need for hepatitis C screening test from Last 3 Months or Most Recently Relevant to Health Maintenance Results * Screening Mammogram Bilateral W Yogesh (10/24/2024 9:49 AM VIDEO CLERK) Anatomical Region Laterality Modality Breast Bilateral Mammography Narrative 10/24/2024 2:58 PM VIDEO CLERK Mammogram Technique: Bilateral Digital Breast Tomosynthesis, Bilateral C-view 2D Screening mammogram. Views obtained: bilateral craniocaudal and bilateral mediolateral oblique. Computer Aided Detection was performed. Mammogram Findings: The present examination has been compared to prior imaging studies performed at [facility] on 10/20/2020, 10/06/2022 and 10/20/2023. [...] compared to prior imaging studies performed at [facility] on 10/20/2020, 10/06/2022 and 10/20/2023. There are scattered areas of fibroglandular density. There is no suspicious abnormality in either breast. Impression: There is no mammographic evidence of malignancy. Annual screening mammography is recommended. OVERALL FINAL ASSESSMENT: BI-RADS CATEGORY 1: Negative. Prashant Ty MD IMG MAMMO PROCEDURES Kitty l Result * OCT, Retina - OU - Both Eyes (10/11/2024 10:19 AM VIDEO CLERK) Central Macular Thickness OS 259 mircometers CONTINUUM Central Macular Thickness OD 249 micrometers CONTINUUM Anatomical Region Laterality Modality Head Other Narrative 10/11/2024 3:24 PM VIDEO CLERK Right Eye Quality was good. Progression has [...] Res ult * eGFR (08/29/2024 10:13 AM VIDEO CLERK) eGFR 74 >=60 mL/min/1. 73 m2 Comment: [...] reviewed 2021. Blood 08/29/2024 10:1 3 AM VIDEO CLERK 08/29/2024 10:33 AM VIDEO CLERK Lynnette Figueroa COURTROOM DEPUTY OR CALENDAR CLERK LAB BLOOD ORDERABLES Final Result [facility] Department [place] [address] * Differential, auto (08/29/2024 10:13 AM VIDEO CLERK) Neutrophil abs 2.4 1.5 - 6.5 K/cumm Comment:Testing performed by : [facility], [address] [place] [address] Lymphocyte abs 1.2 0.8 - 3.3 K/cumm CERNER BJ Comment:Testing performed by : [facility], [address] [place], [place] [phone] Monocyte abs 0.6 0.2 - 0.8 K/cumm CERNER BJ Comment:Testing performed by : [facility], [address] [place], [place] [phone] Eosinophil abs 0.3 0.0 - 0.5 K/cumm CERNER BJ Comment:Testing performed by : [facility], [address] [place] [phone] Basophil abs 0.1 0.0 - 0.1 K/cumm CERNER BJ Comment:Testing performed by : [facility], [address] [place] [phone] Neutrophil pct 54.0 % CERNER BJ Comment: Interpretive Data Percent cell count reference ranges are not reported, since discordance with absolute values may lead to misinterpretation of CBC data. Current Interpretive Data was last revised on 2018. Testing performed by: [facility], [address] [place] [phone] Lymphocyte pct 26.4 % CERNER BJ Comment: Interpretive Data Percent cell count reference ranges are not reported, since discordance with absolute values may lead to misinterpretation of CBC data. Current Interpretive Data was last revised on 2018. Testing performed by: [facility], [address] [place] [phone] Monocyte pct 12.5 % MIREILLE RAGLAND Comment: Interpretive Data Percent cell count reference ranges are not reported, since discordance with absolute values may lead to misinterpretation of CBC data. Current Interpretive Data was last revised on 2018. Testing performed by: [facility], [address] [place] [phone] Eosinophil pct 5.8 % MIREILLE RAGLAND Comment: Interpretive Data Percent cell count reference ranges are not reported, since discordance with absolute values may lead to misinterpretation of CBC data. Current Interpretive Data was last revised on 2018. Testing performed by: [facility], [address] [place], [place] [phone] Basophil pct 1.3 % MIREILLE RAGLAND Comment: Interpretive Data Percent cell count reference ranges are not reported, since discordance with absolute values may lead to misinterpretation of CBC data. Current Interpretive Data was last revised on 2018. Testing performed by: [facility], [address] [place] [phone] Blood 08/29/2024 10:1 3 AM VIDEO CLERK 08/29/2024 10:30 AM VIDEO CLERK us Lynnette Figueroa COURTROOM DEPUTY OR CALENDAR CLERK LAB BLOOD ORDERABLES Final Result [facility] Department [place] [address] * (ABNORMAL) CBC with auto differential (08/29/2024 10:13 AM VIDEO CLERK) WBC 4.5 3.8 - 9.9 K/cumm Comment:Testing performed by : [facility], [address] [place] [phone] Hgb 10.5(L) 11.9 - 15.5 g/dL MIREILLE BUTT Comment:Testing performed by : [facility], [address] [place] [phone] Hct 33.7(L) 35.6 - 45.5 % CERCALVIN BJ Comment:Testing performed by : [facility], [address] [place], [place] [phone] Plt 330 150 - 400 K/cumm CERCALVIN BJ Comment:Testing performed by : [facility], [address] [place], [place] [phone] MPV 8.0 6.8 - 10.4 fL CERCALVIN BJ Comment:Testing performed by : [facility], [address] [place], [place] [phone] RBC 3.71(L) 3.90 - 5.20 M/cumm CERCALVIN BJ Comment:Testing performed by : [facility], [address] [place], [place] [phone] MCV 90.9 81.3 - 96.4 fL CERCALVIN BJ Comment:Testing performed by : [facility], [address] [place], [place] [phone] MCH 28.2 27.1 - 33.3 pg CERCALVIN BJ Comment:Testing performed by : [facility], [address] [place], [place] [phone] MCHC 31.1(L) 32.3 - 35.7 g/dL CERCALVIN BJ Comment:Testing performed by : [facility], [address] [place], [place] [phone] RDW CV 14.9 11.1 - 14.9 % MIREILLE BJ Comment:Testing performed by : [facility], [address] [place], [place] [phone] NRBC abs 0.00 0.00 - 0.01 K/cumm CERCALVIN BJ Comment:Testing performed by : [facility], [address] [place], [place] [phone] Blood 08/29/2024 10:1 3 AM VIDEO CLERK 08/29/2024 10:30 AM VIDEO CLERK us Lynnette Figueroa COURTROOM DEPUTY OR CALENDAR CLERK LAB BLOOD ORDERABLES Final Result [facility] [place] [address] * Lactate dehydrogenase (LD) (08/29/2024 10:13 AM VIDEO CLERK) [facility] Lactate dehydrogenase (LDH) 171 100 - 250 Units/L Blood 08/29/2024 10:1 3 AM VIDEO CLERK 08/29/2024 10:33 AM VIDEO CLERK Lynnette Figueroa COURTROOM DEPUTY OR CALENDAR CLERK LAB BLOOD ORDERABLES Final Result [facility] Department [place] [address] * (ABNORMAL) Comprehensive metabolic panel (08/29/2024 10:13 AM VIDEO CLERK) [facility] Sodium 143 135 - 145 mmol/L Potassium, pl 4.1 3.3 - 4.9 mmol/L [facility] Chloride 112(H) 97 - 110 mmol/L [facility] CO2 28 22 - 32 mmol/L [facility] Anion gap 3 2 - 15 mmol/L [facility] BUN 13 6 - 25 mg/dL [facility] Creatinine 0.83 0.60 - 1.10 mg/dL [facility] Glucose 90 70 - 199 mg/dL [facility] Comment: Interpretive Data Fasting glucose >/= 126 [...] 2022. Calcium 8.8 8.5 - 10.3 mg/dL [facility] Bilirubin, total 0.4 0.1 - 1.2 mg/dL [facility] Protein, pl 7.1 6.5 - 8.5 g/dL [facility] Albumin 3.7 3.5 - 5.0 g/dL CERNER [facility] Alk phos 53 40 - 130 Units/L [facility] ALT 7 7 - 45 Units/L [facility] AST 15 10 - 45 Units/L CERNER [facility] Blood 08/29/2024 10:1 3 AM VIDEO CLERK 08/29/2024 10:33 AM VIDEO CLERK Lynnette Figueroa NP LAB BLOOD ORDERABLES Final Result [facility] Department [place] [address] * Dexa TBS Axial Skeleton Bone Density 1 or more sites (09/22/2023 11:16 AM VIDEO CLERK) Anatomical Region Laterality Modality Wrist, Body N/A Radiographic Meghan ging Narrative 09/22/2023 2:01 PM VIDEO CLERK Patient Name: Jennie Weber Date of : 1950 Date of scan: 09/22/2023 Bone mineral density was performed on a [employer] Discovery Densitometer. Based on machine cross-calibration and [...] by the International Society of Clinical Densitometry. [id number] Charlie Napoles MD [facility] [place] PROCEDURES Final Resul t * Stool DNA - Cologuard (09/27/2022 9:00 PM VIDEO CLERK) [facility] Stool DNA - Cologuard Negative Negative [employer] (CLIA #:[id number]) Comment: NEGATIVE TEST RESULT. A negative Cologuard [...] (Gloria Quiles al, N Engl J Med 2014;370(14):7196-7690) The normal value (reference range) for this assay is negative. COLOGUARD RE-SCREENING RECOMMENDATION: Periodic colorectal cancer screening is an important part of preventive healthcare for asymptomatic individuals at average risk for colorectal cancer. Following a negative Cologuard result, the [place] [employer] and U.S. Multi-Society Task Force screening guidelines recommend a Cologuard re-screening interval of 3 years. References: [place] [employer] Guideline for Colorectal Cancer Screening: https://www.cancer.org/cancer/vlqem-bynkax-ekyhtu/pgjtloayo-wwyijtovm-jaxraoh/ac s-rec ommendations.html.; Julian DK, Steffanie MEMBRENO, Derrick IrwinK, Colorectal Cancer Screening: Recommendations for Physicians and Patients from the U.S. Multi-Society Task Force on Colorectal Cancer Screening , Am J Gastroenterology 2017; 112:2353-4357. TEST DESCRIPTION: Composite algorithmic analysis of stool [...] colonoscopy. (Gloria Liu, N Engl J Med 2014;370(14):7840-0629.) Cologuard may produce a false negative or false positive result (no colorectal cancer or precancerous polyp present at colonoscopy follow up). A negative Cologuard test result does not guarantee the absence of CRC or advanced adenoma (pre-cancer). The current Cologuard screening interval is every 3 years. ([place] [employer] and U.S. Multi-Society Task Force). Cologuard performance data in a 10,000 patient pivotal study using colonoscopy as the reference method can be accessed at the following location: www.[employer]/results. Additional description of the Cologuard test process, warnings and precautions can be found at www.cologRincon Pharmaceuticalsrd.com. Stool 09/27/2022 9:00 PM VIDEO CLERK 09/29/2022 10:27 AM VIDEO CLERK Shakila Meléndez MD LAB BODY FLUIDS AND STOOLS ORDERABLES Final Result [facility] (CLIA #:[id number]) [place] [place] [address] * COLONOSCOPY (03/11/2022 8:49 AM CDT) Anatomical Region Laterality Modality Other Narrative Procedure Note Fredis Trinidad MD - 03/11/2022 8:49 AM CDT [facility] Patient Name: Jennie Weber Procedure Date: 03/11/2022 8:49 AM Date of : 1950 Admit Type: Outpatient Age: 71 Gender: Female Attending MD: Fredis Trinidad M.D. Room: [facility] ENDOSCOPY ROOM 8 Note Status: Finalized [...] the bowel preparation was evaluated using the BBPS(Villalba Bowel Preparation Scale) with scores of: RightColon [...] On: 03/11/2022 8:49 AM Recognized by the [employer] for promoting quality [...] a test for HCV RNA (test code 61181) is suggested. For additional information please refer to http://education.[employer]/faq/FJD13h4 (This link is being provided for informational/ educational purposes only.) Blood specimen (specimen) 03/27/2019 9:57 AM CDT 03/27/2019 9:57 AM CDT Narrative [facility] - 03/28/2019 10:28 AM CDT FASTING:YES FASTING: YES Resulting Agency Comment Performing Organization Information: Site ID: [id number] Name: [employer] [facility] Address: [address] [id number] Director: José Luis Lopez D.O., MPH us Prashant Ty MD LAB MICROBIOLOGY - GENERA L ORDERABLES Final Result [facility] ALVARE[facility] - [facility] M Emanuel from Last 3 Months or Most Recently Relevant to Health Maintenance Insurance [employer] MEDICARE [facility] MEDICARE [facility] MED[facility] Advance Directives For more information, please contact: [phone] * Full Code (Latest Code Status on File) Date Activated Date Inactivated Comments 03/11/2022 8:27 AM 03/11/2022 2:04 PM Care Teams 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 Relationship Specialty Start Date End Date Prashant Ty MD [address] [place] [address] [address] [place] [address] PCP - General 05/19/17 Huy Stark MD PhD [address] [place], [place] [address] [place] [address] Surgeon Ophthalmology 08/07/18 Shakila Meléndez MD [address] [place], [place] [address] [place] [address] Medical Oncologist/Hematologis t Medical Oncology 08/07/18 Frannie Marroquin MD [address] [facility] [address] [place] [address] Consulting Physician Dermatology 08/09/19 Maria R Vee MD [address] [facility] [phone] [place] [address] Purchase Price Analyst Obstetrics and Gynecology 08/13/21 Cecilia Chavez MD [address] [place] [id number] Consulting Physician Bariatrics 08/01/24
--- NOTE | 2024-11-19 03:12 | ED.CHESTPAIN ---
HPI - Chest Pain General Chief Complaint: Chest Pain Stated Complaint: Left Arm Pain, Chest Tightness Time Seen by Provider: 11/19/24 02:46 History of Present Illness HPI narrative: 74-year-old female presenting to the emergency department for evaluation of chest pain left-sided arm pain. She was concerned she was having heart attack. No history of cardiac disease or heart attacks in the past. Remote history of Hodgkin's lymphoma in early adulthood that has been in remission. No history of thromboembolic event such as DVT or PE. Patient was otherwise in her normal state of health. Pain started early last evening, progressively got better with time. Mildly hypertensive in triage but otherwise normal vital signs. Denies any falls or injuries. No trauma. Related Data Home Medications ?Medication ?Instructions ?Recorded ?Confirmed ?Last Taken ?Type amlodipine 5 mg tablet mg 11/19/24 11/18/24 History atorvastatin 10 mg tablet mg 11/19/24 11/18/24 History carvedilol 12.5 mg tablet mg 11/19/24 11/18/24 History olmesartan 40 mg tablet mg 11/19/24 11/18/24 History Allergies Allergy/AdvReac Type Severity Reaction Status Date / Time No Known Allergies Allergy Verified 11/19/24 02:51 Review of Systems Review of Systems: As reviewed above in HPI Exam Narrative: GENERAL: [Well-appearing, well-nourished, and in no acute distress.] HEAD: [Normocephalic, atraumatic.] EYES: [PERRLA and EOMI.] ENT: Nares clear, no rhinorrhea or epistaxis. Mucous membranes moist. NECK: Supple. CHEST: [Clear to auscultation. No respiratory distress.] HEART: [Regular rate and rhythm]. No murmur heard. [Normal peripheral pulses.] ABDOMEN: [Soft, nondistended], [nontender], [No rigidity or guarding] EXTREMITIES: Normal range of motion. [No edema.] SKIN: Warm, dry, no rash. NEURO: [No focal deficits]. Alert and oriented [x3.] PSYCH: [Normal mood and affect.] Course Vital Signs Vital signs: Vital Signs Temperature 36.7 C 11/18/24 18:17 Pulse Rate 75 11/18/24 18:17 Respiratory Rate 18 11/18/24 18:17 Blood Pressure 159/86 H 11/18/24 18:17 Pulse Oximetry 100 11/18/24 18:17 Oxygen Delivery Room Air 11/18/24 18:17 Temperature 36.4 C 11/19/24 02:55 Pulse Rate 75 11/19/24 02:55 Respiratory Rate 16 11/19/24 02:55 Blood Pressure 182/93 H 11/19/24 02:55 Pulse Oximetry 100 11/19/24 02:55 Oxygen Delivery Room Air 11/19/24 02:54 MDM - Chest Pain MDM Narrative Medical decision making narrative: 74-year-old female presenting for evaluation of chest pain left-sided chest as well as radiating down her left arm. She is otherwise well-appearing not any acute distress. Strong symmetric pulses 2+ in the radial arteries. Warm extremities with full range of motion. Clear breath sounds throughout both lung rose. Slightly hypertensive but no tachycardia, fever or hypoxia. No cardiac risk factors aside from blood pressure elevations. Troponin, CBC, CMP, coag studies, EKG and chest x-ray obtained. She was placed on phototypesetting equipment monitor and pulse oximetry. Suspicion presently for musculoskeletal chest pain, costochondritis, less likely ACS but still on the differential. Low suspicion intrathoracic process such as pneumonia. Low Wells criteria for thromboembolic event and can be safely excluded. Workup shows no leukocytosis or anemia. Normal coag studies. Electrolytes largely within normal limits, normal renal function, normal hepatic function, negative lipase, negative troponin. Normal glucose. Chest x-rays independent reviewed and shows a prominent hiatal hernia but no infiltrates or effusion. No pneumothorax. EKG shows sinus rhythm, no signs of ST segment elevations, depressions or inversions. Overall interpretation without any acute ischemia. Patient re-evaluated with improvement symptoms without any intervention. She is safe and stable for discharge home at this time with regular PCP follow-up. Symptoms could be explained by her large hiatal hernia seen on the chest x-ray but ACS is ruled out she can be followed up outpatient. Medical Records Data Attestation: I reviewed the patient's medical records. Lab Data Attestation: I reviewed the patient's lab results. 11/18/24 18:28 11/18/24 18:28 Labs: Lab Results 11/18/24 Range/Units 18:28 WBC 4.6 (4.5-10.0) K/mm3 RBC 4.48 (4.2-5.4) M/mm3 Hgb 13.3 (12.0-15.0) g/dL Hct 41.6 (37.0-47.0) % MCV 92.9 (80-100) fl MCH 29.7 (26-34) pg MCHC 32.0 (32-36) g/dl RDW 15.2 H (11.5-14.5) % Plt Count 223 (150-375) k/mm3 MPV 9.9 (7.4-10.4) fl Immature Gran % (Auto) 0.2 (0-0.5) % Neut % (Auto) 39.8 L (45.5-73.1) % Lymph % (Auto) 43.8 (18.3-44.2) % [place] % (Auto) 12.5 H (2.6-8.5) % Eos % (Auto) 2.6 (0-4.4) % Baso % (Auto) 1.1 (0.2-1.2) % Lymph # (Auto) 2.00 (0.9-3.2) K/mm3 [place] # (Auto) 0.6 (0.1-0.6) K/mm3 Eos # (Auto) 0.1 (0-0.3) K/mm3 Baso # (Auto) 0.1 (0.0-0.1) K/mm3 Abs Immat Gran (auto) 0.01 (0.00-0.031) K/mm3 Absolute Neuts (auto) 1.8 (1.3-6.7) K/mm3 Absolute Nucleated RBC 0.000 (0.0-0.012) K/mm3 Nucleated RBC % 0.0 (0.0-0.2) % PT 15.4 H (11.1-14.7) Seconds INR 1.2 APTT 28.6 (22.3-36.8) Seconds Sodium 143 (137-145) mmol/L Potassium 3.8 (3.4-5.0) mmol/L Chloride 110 H (98-107) mmol/L Carbon Dioxide 22 (22-30) mmol/L Anion Gap 11 (4-12) mmol/L BUN 19 H (7-17) mg/dL Creatinine 0.77 (0.7-1.0) mg/dL Estim Creat Clear Calc 47 ml/min Estimated GFR > 60 (59 - ) Glucose 90 (65-110) mg/dL Calcium 9.4 (8.4-10.2) mg/dL Total Bilirubin 0.5 (0.2-1.3) mg/dL AST 24 (14-36) U/L ALT 15 (6-35) U/L Alkaline Phosphatase 64 (38-126) U/L Troponin I < 0.012 (0.000-0.034) ng/mL Total Protein 8.0 (6.3-8.2) g/dL Albumin 4.3 (3.5-5.1) g/dL Lipase 55 (23-300) U/L Imaging Data Attestation: I personally reviewed and interpreted this imaging study as follows: My impression: Impressions Chest X-Ray 11/18/24 19:01 IMPRESSION: Prominent hiatal hernia, without focal infiltrate or effusion. ECG Data EKG #1: Attestation: I personally reviewed and interpreted this ECG as follows: ECG completion date: 11/19/24 ECG completion time: 18:15 Prior ECG tracings: not available for review Interpretation: Sinus rhythm, no ST segment elevations, depressions or inversions. No ectopy. Good R-wave progression, no baseline EKG for comparison. Regular rate, rhythm and axis, QTC 425, QRS 95, IL interval 171. Overall interpretation, normal sinus rhythm. Discharge Plan Discharge Clinical Impression: Atypical chest pain, Esophageal hiatal hernia Patient Disposition: Home, Self-Care Condition: Stable Instructions: Antibiotic Form, Chest Pain (ED), Hiatal Hernia (DC) Additional Instructions: Your cardiac workup is reassuring, no signs of any cardiac damage or concerns any chest x-ray aside from a very large hiatal hernia which could explain your discomfort and symptoms. Recommendations to follow-up with your primary care provider closely and return if you have any new or worsening/persistent concerns. Patient Language: Korean Prescriptions: No Action carvedilol 12.5 mg tablet atorvastatin 10 mg tablet amlodipine 5 mg tablet olmesartan 40 mg tablet Follow-up/Referrals: UNKNOWN,DOCTOR [Primary Care Provider] - Time of Disposition: 03:17
== END 2024-11-19 03:23 | disposition home or self-care (01) ==
PROVIDERS: Emergency Medicine; Emergency Provider Student in an Organized Health Care Education/Training Program
DX: R07.89 Other chest pain (principal); K44.9 Diaphragmatic hernia without obstruction or gangrene; Z85.71 Personal history of Hodgkin lymphoma
CPT/HCPCS: 36415; 71046; 80053; 83690; 84484; 85025; 85610; 85730; 93005; 99284